=== PATIENT | male | born 1950 | race Caucasian/White ===

== ENCOUNTER → 2016-11-17 | Outpatient (CLI) | payer MEDICARE, OTHER ==
[~2016-11-17] MED LIST: ALLOPURINOL300 MG PO; ASPIRIN81 M1 PO; B12,B-12,B 12500 MC1 PO; B12100 MC1 PO; BUMETANIDE2 MG PO; CLARITIN10 MG PO; CLINDAMYCIN HC300 MG PO; COLCRYS0.6 MG PO; COUMADIN10 M1 PO; COUMADIN5 M2 PO; COUMADIN5 MG PO; Coumadin7.5 MG PO; FEOSOL45 MG PO; FEOSOL65 MG PO; FINASTERIDE5 MG PO; GABAPENTIN400 MG PO; GABAPENTIN600 MG PO; GLIPIZIDE2.5 MG PO; GLIPIZIDE5 MG PO; HYDROCODONE BIT1 T11 PO; INDOCIN25 MG PO; INDOCIN50 MG PO; KEFLEX500 MG PO; KLOR-CON M2020 ME1 PO; KLOR-CON M2020 MEQ PO; KLOR-CON20 MEQ PO; LASIX80 MG PO; LOPRESSOR50 MG PO; MEDROL DOSEPAK4 MG PO; METFORMIN500 MG PO; METOPROLOL50 MG PO; NEBULIZER; OMEPRAZOLE20 MG PO; OXYGEN NAS; PRILOSEC40 M1 PO; SPIRONOLACTONE25 MG PO; SYNTHROID,LEV175 MCG PO; TRAD5TAB1 PO; TRADJENTA PO; VICODIN ES 7501 TAB PO; XOPENEX0.63 MG NEB
--- NOTE | ~2016-11-17 | PR ---
[place], [place] PROGRESS NOTE NAME: JENN PHILLIPS UNIT #: [id number] ROOM: DOCTOR: KEILY CANO DPM BIRTHDATE: [birth year] DOS: 11/17/2016 SUBJECTIVE: The patient seen for bilateral lower extremity partial thickness venous ulcers. The patient had his dressing on, clean, dry and intact as directed. No new complaints. PHYSICAL EXAMINATION: It is noted that the left distal lower leg has a little area of scab formation that measures 0.1 x 0.1 x 0.1. This area was not debrided. Right lower extremity has two open ulcers, right lateral lower leg ulcers, 1 cm x 0.6 cm x 0.1 cm. Right midline anterior leg wound has an ulcer that measures 1.4 x 1.1 x 0.1. After local anesthetic, the areas were debrided with a 15 blade through subcutaneous to remove devitalized tissue and callus. The patient tolerated procedure well. Minimal bleeding controlled with pressure. IMPRESSION: Venous ulcers as described above, right stable and left almost closed. PLAN: 1. Evaluate. 2. Debridement as described. We will use VolTAC and pseudocompression wrap on the right lower leg and Adaptic and pseudocompression wrap on the left lower leg consisting of Kerlix and CoFlex. The patient is to keep this on clean, dry, and intact and reappoint in 1 week for followup. KEILY CANO DPM CM:PNTRANS 0831 [id number] KEILY CANO DPM 11/17/16 1004 interface
== END ==
LOC: WOUNDCARE 03:10
DX: I87.313 Chronic venous hypertension (idiopathic) with ulcer of bilateral lower extremity (principal); L97.821 Non-pressure chronic ulcer of other part of left lower leg limited to breakdown of skin; L97.811 Non-pressure chronic ulcer of other part of right lower leg limited to breakdown of skin; E10.622 Type 1 diabetes mellitus with other skin ulcer; L84 Corns and callosities

== ENCOUNTER → 2016-12-01 | Outpatient (CLI) | payer MEDICARE, OTHER ==
--- NOTE | ~2016-12-01 | PR ---
[place], [place] PROGRESS NOTE NAME: JENN PHILLIPS UNIT #: [id number] ROOM: DOCTOR: KEILY CANO DPM BIRTHDATE: [birth year] DOS: 12/01/2016 SUBJECTIVE: The patient seen for followup of venous ulcerations, bilateral lower extremity. He missed his appointment last week because he was sick. He then has taken off his bandage on his right lower leg. He has kept the bandage on the left lower leg. No new complaints. PHYSICAL EXAMINATION: Upon physical exam, it is noted that the right lower leg ulcerations have improved. The right lower leg lateral ulceration is 0.1 x 0.1 x 0.1 with a scab tissue area. Once this was debrided through dermis, it was noted that this wound is healed. Right lower leg midline ulcer is crusted over at 1.4 cm x 1.1 cm x 0.1 cm. This area was not debrided today. Left lower leg distal wound also has a scab area that is 0.1 x 0.1 x 0.1. Once this area was removed and debrided through dermis, there is no open wound and this has healed as well. IMPRESSION: Venous ulcers, bilateral legs, progressing well. PLAN: 1. Evaluate. 2. We will apply Adaptic to all the areas of ulceration, Kerlix, Coban and pseudocompression wrap. The patient is to keep this on clean, dry, and intact for 1 week and reappoint for follow up at the [facility] Center at that time. KEILY CANO DPM CM:PNTRANS [id number] KEILY CANO DPM 12/01/162228 interface
== END | disposition home or self-care (01) ==
LOC: WOUNDCARE 02:41
DX: E10.622 Type 1 diabetes mellitus with other skin ulcer (principal); L97.821 Non-pressure chronic ulcer of other part of left lower leg limited to breakdown of skin; L97.811 Non-pressure chronic ulcer of other part of right lower leg limited to breakdown of skin; I87.321 Chronic venous hypertension (idiopathic) with inflammation of right lower extremity

== ENCOUNTER → 2017-02-02 | Outpatient (CLI) | payer MEDICARE | END | disposition home or self-care (01) | LOC: MRI 02:50 | DX: E10.69 Type 1 diabetes mellitus with other specified complication (principal); I87.321 Chronic venous hypertension (idiopathic) with inflammation of right lower extremity; L97.902 Non-pressure chronic ulcer of unspecified part of unspecified lower leg with fat layer exposed; M54.5 Low back pain; M62.81 Muscle weakness (generalized); R20.2 Paresthesia of skin ==

== ENCOUNTER → 2017-02-09 | Outpatient (CLI) | payer MEDICARE ==
--- NOTE | ~2017-02-09 | PR ---
[place], [place] PROGRESS NOTE NAME: JENN PHILLIPS UNIT #: [id number] ROOM: DOCTOR: KEILY CANO DPM BIRTHDATE: [birth year] DOS: 02/09/2017 SUBJECTIVE: This is an established patient seen for right lower extremity partial thickness ulcerations. Last week, he was transitioned into his compression stockings. Today, he presents with no new complaints. He has been wearing his compression stockings. He does state that somewhat difficult to get on because of the edema, edema is more evident in the right lower extremity than the left. He does have an appointment with his primary care doctor next week and he is going to [place] in order to get an clinical physician assistant device to help him put his stockings on. PHYSICAL EXAMINATION: It is noted that there are no open ulcerations, all areas have healed. No evidence of any complications or other abnormalities other than the chronic edema. IMPRESSION: Healed venous wounds, bilateral. PLAN: 1. Evaluate. 2. The patient is to continue to wear his compression stockings and consult his primary care doctor as we have discussed. He will be discharged as healed from the wound center but he is encouraged to call if any problems should arise in the areas at this time. KEILY CANO DPM CM:SILVANA [id number] [id number] KEILY CANO DPM 02/10/17 1257 interface
== END ==
LOC: WOUNDCARE 03:09
DX: I87.321 Chronic venous hypertension (idiopathic) with inflammation of right lower extremity (principal); E10.622 Type 1 diabetes mellitus with other skin ulcer; L97.812 Non-pressure chronic ulcer of other part of right lower leg with fat layer exposed

== ENCOUNTER → 2017-02-16 | Outpatient (CLI) | payer MEDICARE ==
[~2017-02-16] MED LIST changes: +COUMADIN7.5 M1 PO; +FINASTERIDE5 M1 PO; +GABAPENTIN800 MG PO; +JANUVIA100 MG PO; +OMEPRAZOLE40 MG PO
== END | disposition home or self-care (01) ==
LOC: CARD 03:28
DX: I25.10 Atherosclerotic heart disease of native coronary artery without angina pectoris (principal); I10 Essential (primary) hypertension; I48.91 Unspecified atrial fibrillation; I35.1 Nonrheumatic aortic (valve) insufficiency; I34.0 Nonrheumatic mitral (valve) insufficiency; I07.1 Rheumatic tricuspid insufficiency; R60.0 Localized edema; R06.00 Dyspnea, unspecified

== ENCOUNTER 2017-02-17 10:51 | Inpatient (IN) | payer MEDICARE ==
[~2017-02-17] VITALS: Ht 180.3 cm; Wt 136.1 kg
--- NOTE | ~2017-02-17 | PR ---
[place], [place] PROGRESS NOTE NAME: JENN PHILLIPS UNIT #: [id number] ROOM: 526 DOCTOR: AMY ROGERS MD BIRTHDATE: [birth year] DOS: 02/22/2017 SUBJECTIVE: This gentleman has chronic atrial fibrillation and had heart surgery for "repair of a hole in the heart." He was seen by Dr. Ford few days ago. He is on loop diuretic intravenously and was 1.6 liters fluid negative in the last 24 hours. Previously, he was diuresing much less. He still has lot of swelling, which is chronic. There have not been any palpitations or any chest pain at this time. He has walked in the room only. OBJECTIVE: GENERAL: He looks well, very obese with a rather protuberant abdomen. VITAL SIGNS: Pulse is irregular at 80 beats per minute, blood pressure 125/73. NECK: JVP is normal. AJR appears to be negative, but he has 3+ edema below the knees. LUNGS: Breath sounds are diminished with very few adventitious sounds. IMPRESSION: 1. Chronic atrial fibrillation with controlled ventricular rate. 2. Probable diastolic heart failure due to atrial fibrillation. He is to have a Lexiscan Cardiolite study tomorrow. I saw this patient on behalf of Dr. Ford. AMY ROGERS MD CM:PNTRANS [id number] AMY ROGERS MD 02/23/17 0707 interface
--- NOTE | ~2017-02-17 | CON ---
[place], [place] REPORT OF CONSULTATION NAME: JENN PHILLIPS UNIT #: [id number] ROOM: 526 DOCTOR: SHELBY GROSS MD BIRTHDATE: [birth year] DOS: 02/18/2017 HISTORY OF PRESENT ILLNESS: The patient is a 66-year-old gentleman well known to me with a known history of bypass surgery, history of atrial fibrillation, on chronic anticoagulation. The patient has paroxysmal atrial fibrillation. The patient came in with significant shortness of breath and chest x-ray revealed congestive heart failure, did have an echocardiogram done showed an ejection fraction of 45%. He had not had a stress test for a long time. He denies any chest discomfort. Hemodynamically appears to be stable. His plain problem was, orthopnea, paroxysmal nocturnal dyspnea, does have a history of sleep apnea also. PAST MEDICAL HISTORY: History of chronic systolic heart failure, diabetes, hypertension, hyperlipidemia, history of DVT, history of pulmonary embolism, obstructive sleep apnea, history of atrial fibrillation. PAST SURGICAL HISTORY: Bypass surgery, repair of hiatal hernia, knee surgery, presence of IVC filter. SOCIAL HISTORY: Denies any alcohol or drug abuse. Does not use tobacco. FAMILY HISTORY: Coronary artery disease, diabetes and hypertension. HOME MEDICATIONS: Aspirin, furosemide 80 mg daily, gabapentin, iron, levothyroxine, loratadine, metoprolol, potassium, spironolactone, and Coumadin. REVIEW OF SYSTEMS: CONSTITUTIONAL: No fever, no chills. HEENT: Denies any visual changes. No hearing loss. CARDIOVASCULAR: As described in HPI. RESPIRATORY: Does have dyspnea on exertion. ABDOMEN: Soft. EXTREMITIES: No nausea, no vomiting. GENITOURINARY: No dysuria, hematuria. NEUROLOGIC: No syncope. PSYCHIATRIC: Intact. ENDOCRINE: Intact. PHYSICAL EXAMINATION: VITAL SIGNS: Blood pressure is 102/79. He is in atrial fibrillation, rate is about 90. HEENT: Elevated JVD. LUNGS: Diminished air entry bilaterally. HEART: Sounds are irregularly irregular. ABDOMEN: Obese, soft. EXTREMITIES: About 2+ edema. NEUROLOGICAL: Alert, oriented x3. Sensory and motor intact. LABORATORY DATA: Sodium 142, potassium 4.2, BUN and creatinine within normal limits. Creatinine is 1.1. CPK-MB is negative. Troponin is negative. BNP is [place], [place] REPORT OF CONSULTATION NAME: JENN PHILLIPS UNIT #: [id number] ROOM: 526 DOCTOR: SHELBY GROSS MD BIRTHDATE: [birth year] 7[birth year]. INR is 2.6. Hemoglobin and hematocrit 11.5 and 36.2. Chest x-ray showed mild congestive heart failure. IMPRESSION: Acute on chronic systolic congestive heart failure, morbid obesity, paroxysmal atrial fibrillation, history of pulmonary embolism, diabetes mellitus and hypertension. RECOMMENDATIONS: I agree with the present management. Continue IV diuretics, fluid restriction. Continue anticoagulation. Increase the metoprolol. Monitor the heart rate and blood pressure closely. We will set him up for a Lexiscan Cardiolite stress test also. Echo showed an EF of 45%, and we will follow up. SHELBY GROSS MD CM:CONSTR:REPORT OF CONSULTATION 0746 02/18/17 0805 interface
--- NOTE | ~2017-02-17 | ST ---
[place], [place] EXERCISE STRESS TEST REPORT NAME: JENN PHILLIPS UNIT #: [id number] ROOM: 526 DOCTOR: SHELBY GROSS MD BIRTHDATE: [birth year] DOS: 02/23/2017 LEXISCAN PORTION OF THE LEXISCAN CARDIOLITE INTERPRETATION: Baseline cardiogram is atrial fibrillation with mild ST depression with T-wave inversion in the anterior leads with nonspecific ST-T changes and also on the anterolateral leads. 0.4 mg of Lexiscan, duration of 10 seconds. The patient had no chest discomfort. No other dysrhythmia other than underlying atrial fibrillation. Blood pressure and heart rate response was normal. FINAL IMPRESSION: Indeterminate secondary to the underlying EKG abnormalities and atrial fibrillation. No chest discomfort. More pronounced ST depression with Lexiscan in the inferior and lateral leads. Blood pressure and heart rate normal. Nuclear images will be reported separately. SHELBY GROSS MD CM:STRESS:EXERCISE STRESS TEST REPORT 0710 1007 SHELBY GROSS MD
[~2017-02-17 10:51] MED LIST changes: -COUMADIN7.5 M1 PO; -FINASTERIDE5 M1 PO; -GABAPENTIN800 MG PO; -JANUVIA100 MG PO; -OMEPRAZOLE40 MG PO
[2017-02-17 11:00] VITALS: BP 105/65
[2017-02-17 11:22] LABS: BASO % 0.3 % (0.0-1.0); HEMATOCRIT 36.2 % (42.0-52.0); HEMOGLOBIN 11.5 g/dl (14.0-18.0); LYMPH # 1.2 10*3/uL (1.3-4.4); LYMPH % 30.6 % (27.0-41.0); MEAN CELL VOLUME 107.7 fl (80.0-94.0); MEAN CORPUSCULAR HGB 34.2 pg (27.0-31.0); MEAN CORPUSCULAR HGB CONC 31.8 g/dl (33.0-37.0); MEAN PLATELET VOLUME 10.2 fl (9.6-12.3); MONO # 0.4 10*3/uL (0.1-1.0); MONO % 9.5 % (3.0-9.0); NEUT # 2.3 10*3/uL (2.3-7.9); NEUT % 58.3 % (47.0-73.0); PLATELET COUNT AUTOMATED 101 10*3/uL (130-400); RED BLOOD COUNT 3.36 10*6/uL (4.50-5.90); RED CELL DISTRI WIDTH 15.9 % (0-14.5); WHITE BLOOD COUNT 3.9 10*3/uL (4.8-10.8)
[2017-02-17 11:31] LABS: INTERNATIONAL NORM RATIO 2.6 (2.0-3.5); PROTHROMBIN TIME 29.2 SECONDS (9.0-12.4)
[2017-02-17] MEDS ORDERED: LASIX80 MG PO (11:35)
[2017-02-17] MEDS ORDERED: METFORMIN500 MG PO (11:37)
[2017-02-17] MEDS ORDERED: GABAPENTIN800 MG PO (11:37)
[2017-02-17 11:38] LABS: ALBUMIN 2.8 gm/dl (3.1-4.5); ALKALINE PHOSPHATASE 74 U/L (45-117); BILIRUBIN, TOTAL 0.9 mg/dl (0.2-1.0); BUN 20 mg/dl (7-24); C-REACTIVE PROTEIN 0.81 MG/DL (0-0.3); CARBON DIOXIDE 29 mmol/L (21-32); CHLORIDE 107 mmol/L (98-107); CPK 69 U/L (39-308); EST GLOM FILT AFRICAN AMERICAN > 60 ml/min; GLUCOSE 188 mg/dL (65-99); MAGNESIUM 1.8 mg/dL (1.5-2.1); POTASSIUM 4.2 mmol/L (3.5-5.1); SGOT/AST 18 IU/L (3-35); SGPT/ALT 27 U/L (12-78); SODIUM 142 mmol/L (136-145); TOTAL PROTEIN 7.4 gm/dL (6.4-8.2)
[2017-02-17] MEDS ORDERED: KLOR-CON M2020 ME1 PO (11:38)
[2017-02-17] MEDS ORDERED: OMEPRAZOLE40 MG PO (11:38)
[2017-02-17] MEDS ORDERED: BUMETANIDE2 MG PO (11:38)
[2017-02-17 11:52] VITALS: BP 120/66
[2017-02-17 13:19] LABS: LA>2 REFLEX 2 HR DRAW NOW
[2017-02-17] MEDS ORDERED: FINASTERIDE5 M1 PO (13:20)
[2017-02-17 13:30] VITALS: BP 102/79
[2017-02-17] MEDS ORDERED: COUMADIN7.5 M1 PO (13:30)
[2017-02-17 13:37] LABS: LA>2 RFLX FOLLOW UP AT 2 HRS 2.3 mmol/L (0.4-2.0)
[2017-02-17] MEDS ORDERED: JANUVIA100 MG PO (13:37)
[2017-02-17 15:27] LABS: LA>2 REFLEX 4 HR DRAW NOW
[2017-02-17 16:00] VITALS: BP 104/72
[2017-02-17 18:16] LABS: CKMB 1.7 ng/ml (0.5-3.6); TROPONIN I 0.019 ng/ml (<0.045)
[2017-02-17 20:00] VITALS: BP 120/76; BP 143/58
[2017-02-18] VITALS: BP 113/52
[2017-02-18 00:52] LABS: CKMB 1.4 ng/ml (0.5-3.6); TROPONIN I 0.018 ng/ml (<0.045)
[2017-02-18 05:56] LABS: BASO % 0.5 % (0.0-1.0); EOS # 0.1 10*3/uL (0.0-0.4); EOS % 2.1 % (1.0-4.0); HEMATOCRIT 36.1 % (42.0-52.0); HEMOGLOBIN 11.4 g/dl (14.0-18.0); LYMPH # 1.3 10*3/uL (1.3-4.4); LYMPH % 34.2 % (27.0-41.0); MEAN CELL VOLUME 107.8 fl (80.0-94.0); MEAN CORPUSCULAR HGB CONC 31.6 g/dl (33.0-37.0); MEAN PLATELET VOLUME 11.6 fl (9.6-12.3); MONO # 0.4 10*3/uL (0.1-1.0); MONO % 10.7 % (3.0-9.0); NEUT # 1.9 10*3/uL (2.3-7.9); PLATELET COUNT AUTOMATED 99 10*3/uL (130-400); RED BLOOD COUNT 3.35 10*6/uL (4.50-5.90); RED CELL DISTRI WIDTH 16.1 % (0-14.5); WHITE BLOOD COUNT 3.7 10*3/uL (4.8-10.8)
[2017-02-18 06:10] LABS: CKMB 1.2 ng/ml (0.5-3.6); TROPONIN I 0.018 ng/ml (<0.045)
[2017-02-18 06:27] LABS: BUN 20 mg/dl (7-24); CARBON DIOXIDE 34 mmol/L (21-32); CHLORIDE 104 mmol/L (98-107); EST GLOM FILT AFRICAN AMERICAN > 60 ml/min; GLUCOSE 145 mg/dL (65-99); MAGNESIUM 1.8 mg/dL (1.5-2.1); PHOSPHOROUS 3.1 mg/dL (2.5-4.9); POTASSIUM 4.2 mmol/L (3.5-5.1); SODIUM 143 mmol/L (136-145)
[2017-02-18 06:35] LABS: FREE T4 1.29 ng/dl (0.76-1.46)
[2017-02-18 06:51] LABS: INTERNATIONAL NORM RATIO 2.4 (2.0-3.5)
[2017-02-18 08:18] VITALS: BP 106/71
[2017-02-18 14:00] VITALS: BP 119/78
[2017-02-18 15:21] LABS: LA>2 REFLEX 2 HR DRAW NOW
[2017-02-18 17:22] VITALS: BP 117/58
[2017-02-18 20:16] VITALS: BP 115/83
[2017-02-19] VITALS: BP 111/52
[2017-02-19 06:54] LABS: BASO % 0.5 % (0.0-1.0); EOS # 0.1 10*3/uL (0.0-0.4); EOS % 1.2 % (1.0-4.0); HEMATOCRIT 39.5 % (42.0-52.0); HEMOGLOBIN 12.3 g/dl (14.0-18.0); LYMPH # 1.2 10*3/uL (1.3-4.4); LYMPH % 29.3 % (27.0-41.0); MEAN CELL VOLUME 107.9 fl (80.0-94.0); MEAN CORPUSCULAR HGB 33.6 pg (27.0-31.0); MEAN CORPUSCULAR HGB CONC 31.1 g/dl (33.0-37.0); MEAN PLATELET VOLUME 10.5 fl (9.6-12.3); MONO # 0.5 10*3/uL (0.1-1.0); MONO % 11.8 % (3.0-9.0); NEUT # 2.4 10*3/uL (2.3-7.9); PLATELET COUNT AUTOMATED 96 10*3/uL (130-400); RED BLOOD COUNT 3.66 10*6/uL (4.50-5.90); RED CELL DISTRI WIDTH 15.9 % (0-14.5); WHITE BLOOD COUNT 4.2 10*3/uL (4.8-10.8)
[2017-02-19 07:26] LABS: INTERNATIONAL NORM RATIO 2.2 (2.0-3.5); PROTHROMBIN TIME 24.5 SECONDS (9.0-12.4)
[2017-02-19 08:00] VITALS: BP 108/72
[2017-02-19 12:00] VITALS: BP 109/72
[2017-02-19 16:00] VITALS: BP 114/66
[2017-02-19 20:00] VITALS: BP 125/84; BP 145/61
[2017-02-20] VITALS: BP 100/60
[2017-02-20 07:02] LABS: BASO % 0.6 % (0.0-1.0); EOS # 0.1 10*3/uL (0.0-0.4); EOS % 2.1 % (1.0-4.0); HEMATOCRIT 36.2 % (42.0-52.0); HEMOGLOBIN 11.5 g/dl (14.0-18.0); LYMPH # 1.1 10*3/uL (1.3-4.4); LYMPH % 32.2 % (27.0-41.0); MEAN CELL VOLUME 107.1 fl (80.0-94.0); MEAN CORPUSCULAR HGB CONC 31.8 g/dl (33.0-37.0); MEAN PLATELET VOLUME 10.7 fl (9.6-12.3); MONO # 0.4 10*3/uL (0.1-1.0); MONO % 11.8 % (3.0-9.0); NEUT # 1.8 10*3/uL (2.3-7.9); NEUT % 53.3 % (47.0-73.0); PLATELET COUNT AUTOMATED 98 10*3/uL (130-400); RED BLOOD COUNT 3.38 10*6/uL (4.50-5.90); RED CELL DISTRI WIDTH 15.7 % (0-14.5); WHITE BLOOD COUNT 3.4 10*3/uL (4.8-10.8)
[2017-02-20 07:27] LABS: BUN 26 mg/dl (7-24); CARBON DIOXIDE 34 mmol/L (21-32); CHLORIDE 101 mmol/L (98-107); EST GLOM FILT AFRICAN AMERICAN > 60 ml/min; GLUCOSE 145 mg/dL (65-99); SODIUM 141 mmol/L (136-145)
[2017-02-20 08:00] VITALS: BP 96/72
[2017-02-20 08:08] LABS: INTERNATIONAL NORM RATIO 2.2 (2.0-3.5); PROTHROMBIN TIME 24.2 SECONDS (9.0-12.4)
[2017-02-20 12:00] VITALS: BP 102/70
[2017-02-20 16:00] VITALS: BP 91/66
[2017-02-20 20:00] VITALS: BP 111/74
[2017-02-21] VITALS: BP 127/82
[2017-02-21 06:08] LABS: BASO % 0.5 % (0.0-1.0); EOS # 0.1 10*3/uL (0.0-0.4); EOS % 1.9 % (1.0-4.0); HEMATOCRIT 37.6 % (42.0-52.0); HEMOGLOBIN 11.9 g/dl (14.0-18.0); LYMPH # 1.2 10*3/uL (1.3-4.4); MEAN CORPUSCULAR HGB 34.2 pg (27.0-31.0); MEAN CORPUSCULAR HGB CONC 31.6 g/dl (33.0-37.0); MEAN PLATELET VOLUME 10.8 fl (9.6-12.3); MONO # 0.4 10*3/uL (0.1-1.0); MONO % 11.7 % (3.0-9.0); NEUT % 53.6 % (47.0-73.0); PLATELET COUNT AUTOMATED 108 10*3/uL (130-400); RED BLOOD COUNT 3.48 10*6/uL (4.50-5.90); RED CELL DISTRI WIDTH 15.6 % (0-14.5); WHITE BLOOD COUNT 3.7 10*3/uL (4.8-10.8)
[2017-02-21 06:21] LABS: CHLORIDE 99 mmol/L (98-107); POTASSIUM 4.1 mmol/L (3.5-5.1); SODIUM 140 mmol/L (136-145)
[2017-02-21 06:25] LABS: BUN 26 mg/dl (7-24); CARBON DIOXIDE 34 mmol/L (21-32); EST GLOM FILT AFRICAN AMERICAN > 60 ml/min; GLUCOSE 167 mg/dL (65-99)
[2017-02-21 07:27] LABS: PROTHROMBIN TIME 22.1 SECONDS (9.0-12.4)
[2017-02-21 08:00] VITALS: BP 111/77
[2017-02-21 12:00] VITALS: BP 115/73
[2017-02-21 16:00] VITALS: BP 110/70; BP 95/64
[2017-02-21 20:00] VITALS: BP 131/86
[2017-02-22] VITALS: BP 111/65
[2017-02-22 06:06] LABS: BUN 26 mg/dl (7-24); CARBON DIOXIDE 38 mmol/L (21-32); CHLORIDE 98 mmol/L (98-107); EST GLOM FILT AFRICAN AMERICAN > 60 ml/min; GLUCOSE 156 mg/dL (65-99); POTASSIUM 4.2 mmol/L (3.5-5.1); SODIUM 139 mmol/L (136-145)
[2017-02-22 06:10] LABS: INTERNATIONAL NORM RATIO 2.1 (2.0-3.5); PROTHROMBIN TIME 23.4 SECONDS (9.0-12.4)
[2017-02-22 08:00] VITALS: BP 117/63
[2017-02-22 12:00] VITALS: BP 106/45
[2017-02-22 16:00] VITALS: BP 125/73
[2017-02-22 20:00] VITALS: BP 128/80
[2017-02-23] VITALS: BP 102/74
[2017-02-23 06:34] LABS: INTERNATIONAL NORM RATIO 2.3 (2.0-3.5); PROTHROMBIN TIME 25.2 SECONDS (9.0-12.4)
[2017-02-23 08:00] VITALS: BP 125/74
[2017-02-23 09:34] LABS: BASO % 0.6 % (0.0-1.0); EOS # 0.1 10*3/uL (0.0-0.4); EOS % 1.7 % (1.0-4.0); HEMATOCRIT 40.1 % (42.0-52.0); HEMOGLOBIN 12.6 g/dl (14.0-18.0); LYMPH # 1.1 10*3/uL (1.3-4.4); LYMPH % 30.7 % (27.0-41.0); MEAN CELL VOLUME 106.4 fl (80.0-94.0); MEAN CORPUSCULAR HGB 33.4 pg (27.0-31.0); MEAN CORPUSCULAR HGB CONC 31.4 g/dl (33.0-37.0); MEAN PLATELET VOLUME 10.6 fl (9.6-12.3); MONO # 0.3 10*3/uL (0.1-1.0); MONO % 9.5 % (3.0-9.0); NEUT # 2.1 10*3/uL (2.3-7.9); NEUT % 57.2 % (47.0-73.0); PLATELET COUNT AUTOMATED 99 10*3/uL (130-400); RED BLOOD COUNT 3.77 10*6/uL (4.50-5.90); RED CELL DISTRI WIDTH 15.3 % (0-14.5); WHITE BLOOD COUNT 3.6 10*3/uL (4.8-10.8)
[2017-02-23 09:50] LABS: BUN 24 mg/dl (7-24); CARBON DIOXIDE 36 mmol/L (21-32); CHLORIDE 97 mmol/L (98-107); EST GLOM FILT AFRICAN AMERICAN > 60 ml/min; GLUCOSE 191 mg/dL (65-99); POTASSIUM 4.1 mmol/L (3.5-5.1); SODIUM 138 mmol/L (136-145)
[2017-02-23 12:00] VITALS: BP 113/72
[2017-02-23 16:00] VITALS: BP 107/69
[2017-02-23] MEDS ORDERED: BUMETANIDE2 MG PO (17:08)
[2017-02-23] MEDS ORDERED: LOPRESSOR25 MG PO (17:10)
== END 2017-02-23 18:36 | disposition home health service (06) | DRG 291 ==
LOC: ED 10:51 → 5E 12:09 → EDHOLD 12:09 → 5E 12:22
PROVIDERS: Emergency Medicine; Hospitalist; Internal Medicine; Internal Medicine Hospice and Palliative Medicine
PROC: 3E073KZ Introduction of Other Diagnostic Substance into Coronary Artery, Percutaneous Approach (ICD-10-PCS; principal; 2017-02-23)
PROC: 4A02XM4 Measurement of Cardiac Total Activity, External Approach (ICD-10-PCS; principal; 2017-02-23)
DX: I13.0 Hypertensive heart and chronic kidney disease with heart failure and stage 1 through stage 4 chronic kidney disease, or unspecified chronic kidney disease (principal); I50.23 Acute on chronic systolic (congestive) heart failure; D61.818 Other pancytopenia; E87.2 Acidosis; E44.0 Moderate protein-calorie malnutrition; R65.10 Systemic inflammatory response syndrome (SIRS) of non-infectious origin without acute organ dysfunction; E11.42 Type 2 diabetes mellitus with diabetic polyneuropathy; E11.65 Type 2 diabetes mellitus with hyperglycemia; Z68.41 Body mass index [BMI] 40.0-44.9, adult; I48.0 Paroxysmal atrial fibrillation; I48.2 Chronic atrial fibrillation; E78.5 Hyperlipidemia, unspecified; N40.0 Benign prostatic hyperplasia without lower urinary tract symptoms; E66.01 Morbid (severe) obesity due to excess calories; G47.33 Obstructive sleep apnea (adult) (pediatric); Z86.718 Personal history of other venous thrombosis and embolism; Z86.711 Personal history of pulmonary embolism; Z83.3 Family history of diabetes mellitus; Z82.49 Family history of ischemic heart disease and other diseases of the circulatory system; Z84.89 Family history of other specified conditions; Z79.82 Long term (current) use of aspirin; Z79.84 Long term (current) use of oral hypoglycemic drugs; Z79.01 Long term (current) use of anticoagulants; Z79.1 Long term (current) use of non-steroidal anti-inflammatories (NSAID); Z79.899 Other long term (current) drug therapy; N18.3 Chronic kidney disease, stage 3 (moderate)

== ENCOUNTER → 2017-03-03 | Outpatient (CLI) | payer MEDICARE ==
[~2017-03-03] MED LIST changes: +COUMADIN7.5 M1 PO; +FINASTERIDE5 M1 PO; +GABAPENTIN800 MG PO; +JANUVIA100 MG PO; +LOPRESSOR25 MG PO; +OMEPRAZOLE40 MG PO
[2017-03-03 10:07] LABS: HEMATOCRIT 38.8 % (42.0-52.0); HEMOGLOBIN 12.2 g/dl (14.0-18.0); MEAN CELL VOLUME 107.5 fl (80.0-94.0); MEAN CORPUSCULAR HGB 33.8 pg (27.0-31.0); MEAN CORPUSCULAR HGB CONC 31.4 g/dl (33.0-37.0); MEAN PLATELET VOLUME 9.9 fl (9.6-12.3); RED BLOOD COUNT 3.61 10*6/uL (4.50-5.90); RED CELL DISTRI WIDTH 15.4 % (0-14.5); WHITE BLOOD COUNT 3.8 10*3/uL (4.8-10.8)
[2017-03-03 10:31] LABS: BUN 20 mg/dl (7-24); CARBON DIOXIDE 34 mmol/L (21-32); CHLORIDE 103 mmol/L (98-107); EST GLOM FILT AFRICAN AMERICAN > 60 ml/min; GLUCOSE 158 mg/dL (65-99); POTASSIUM 4.5 mmol/L (3.5-5.1); SGOT/AST 20 IU/L (3-35); SGPT/ALT 29 U/L (12-78); SODIUM 141 mmol/L (136-145)
[2017-03-03 10:32] LABS: INTERNATIONAL NORM RATIO 2.1 (2.0-3.5); PROTHROMBIN TIME 23.2 SECONDS (9.0-12.4)
[2017-03-03 10:33] LABS: ALKALINE PHOSPHATASE 85 U/L (45-117); TOTAL PROTEIN 7.7 gm/dL (6.4-8.2)
== END | disposition home or self-care (01) ==
LOC: LAB 09:29
PROVIDERS: Family Medicine
DX: I50.9 Heart failure, unspecified (principal); R06.02 Shortness of breath; Z79.01 Long term (current) use of anticoagulants

== ENCOUNTER → 2017-03-18 | Outpatient (CLI) | payer MEDICARE ==
[2017-03-18 09:39] LABS: INTERNATIONAL NORM RATIO 2.5 (2.0-3.5); PROTHROMBIN TIME 28.1 SECONDS (9.0-12.4)
== END | disposition home or self-care (01) ==
LOC: LAB 08:45
PROVIDERS: Family Medicine
DX: Z79.01 Long term (current) use of anticoagulants (principal)

== ENCOUNTER 2017-03-31 13:54 | Inpatient (IN) | payer MEDICARE ==
[~2017-03-31] VITALS: Ht 180.3 cm; Wt 132.2 kg
[2017-03-31] VITALS (9 sets, daily range): BP systolic 110–128; BP diastolic 67–89
--- NOTE | ~2017-03-31 | EKG ---
[place], [place] ELECTROCARDIOGRAM REPORT NAME: JENN PHILLIPS UNIT #: [id number] ROOM: 508 DOCTOR: SHELBY GROSS MD BIRTHDATE: [birth year] DOS: 04/01/2017 Atrial fibrillation, slightly rapid ventricular response, ST-depressions and T-wave inversion in the anterior and anterolateral leads. SHELBY GROSS MD CM:EKGRPT:ELECTROCARDIOGRAM REPORT 1138 1823 SHELBY GROSS MD
--- NOTE | ~2017-03-31 | PR ---
[place], [place] PROGRESS NOTE NAME: JENN PHILLIPS UNIT #: [id number] ROOM: [place] [address] DOCTOR: ZAIDA HAY MD,SAMM BIRTHDATE: [birth year] DOS: 04/11/2017 PULMONARY CRITICAL CARE EVALUATION AND MANAGEMENT SUBJECTIVE: The patient was seen and examined on 04/11/2017. He remains in the Intensive Care Unit sedated with low dose Diprivan, noted arousable with the vocal commands for the patient. The patient has not been noted with any acute new hemodynamic instability at this time. He will continue diuretic therapy as well. Mechanical ventilation continued on the same setting yesterday with 40% oxygen supplementation. The patient continued to remain on pressure controlled assist control mode of mechanical ventilation use. OBJECTIVE: VITAL SIGNS: For the patient, which was recorded show the temperature noted 100.7 degree Fahrenheit rectally to normal temperature, respiratory rate 12-16, heart rate 78-84. The blood pressure 111/63-104/62. The intake for the patient recorded as 2994 mL, output 5151 mL, negative 2. liters. The pulse oxygen saturation on 40% oxygen was noted as 94% saturation. HEENT: Examination shows head was atraumatic. Eyes nonicterus. NECK: Supple. CARDIOVASCULAR SYSTEM: S1, S2 is audible. LUNGS: The patient was noted without any wheeze or crackles at the present time. ABDOMEN: Soft and obese. Bowel sounds present. EXTREMITIES: Shows mild edema. LABORATORY DATA: The INR today noted 1.4. PTT noted therapy for this patient as 85.2. The CMP of the patient of 04/11 shows glucose 213, BUN 57, creatinine 1.81. Potassium was 3.1. Carbon dioxide 40. Chloride of 91. Albumin 2.9. Bilirubin 2.0. Arterial blood gas, pH of 7.55, pCO2 of 46, pO2 102 on 40% oxygen supplementation. CBC: WBC count 5.7, hemoglobin 11.3, hematocrit 36.4, platelet count 113,000. The chest x-ray which was done this morning for the patient was reviewed shows continued improvement in the aeration of the lungs for the patient with small basilar areas of atelectasis. IMPRESSION: 1. The patient who has been currently noted with acute persistent severe hypoxic respiratory failure for this patient. 2. Resolving acute congestive heart failure as well. 3. Improving metabolic alkalosis for the patient and hypokalemia. 4. Chronic obesity. 5. Suspected obstructive sleep apnea disorder. 6. Chronic anticoagulation noted subtherapeutic. Currently, the patient receiving IV therapeutic heparin for the patient with therapeutic PTT and also getting the patient to maintain to bring the INR to therapeutic level prior to discontinuation of the heparin. 7. Chronic atrial fibrillation. The patient has been already treated as well and noted in controlled range. 8. Protein calorie malnutrition status. [place], [place] PROGRESS NOTE NAME: JENN PHILLIPS UNIT #: [id number] ROOM: [place] [address] DOCTOR: ZAIDA HAY MD,SAMM BIRTHDATE: [birth year] PLAN OF TREATMENT: Continuation of the bronchodilators and oxygen supplementation. Continue use of Diamox and potassium supplementation. Monitor respiratory status. Plan is to switch the patient tomorrow to volume controlled mechanical ventilation for the patient with reduction in the PEEP for this patient and the weaning will be started accordingly. Continue maximum nutritional status. Supportive therapy, plan of management and other care. DVT prophylaxis in the form of the anticoagulation will be continued as well. Further treatment changes could be done for this patient based on the progression of the illness. Other treatment plan and management as in progress as well. Ventilator bundle management remains in progress. Obtain another prealbumin level of the patient to determine the improvement in the protein calorie malnutrition. Total time for the patient pulmonary critical care evaluation and management was 36 minutes. SAMM CERDA MD CM:PNTRANS 1336 0028 SAMM HAY MD 04/12/17 0028 interface
--- NOTE | ~2017-03-31 | EKG ---
[place], [place] ELECTROCARDIOGRAM REPORT NAME: JENN PHILLIPS UNIT #: [id number] ROOM: [place] [address] DOCTOR: SHELBY GROSS MD BIRTHDATE: [birth year] DOS: 03/31/2017 Atrial fibrillation. Slightly rapid ventricular response. ST depressions present in anterior and anterolateral leads. Suggestion of anterolateral ischemia. SHELBY GROSS MD CM:EKGRPT:ELECTROCARDIOGRAM REPORT 1142 1212 SHELBY GROSS MD
--- NOTE | ~2017-03-31 | PR ---
[place], [place] PROGRESS NOTE NAME: JENN PHILLIPS UNIT #: [id number] ROOM: [place] [address] DOCTOR: ZAIDA HAY MD,SAMM BIRTHDATE: [birth year] DOS: 04/12/2017 SUBJECTIVE: The patient remains on the pressure controlled mechanical ventilation, at this time oxygen supplementation 40%, which seem to be tolerated. He has not been noted any acute hemodynamic instability, heart rate was also noted less than 100. OBJECTIVE: VITAL SIGNS: The patient was noted the rectal temperature elevated at 102.5 degrees Fahrenheit to normal temperature, respiratory rate 12-13, heart rate 73, and blood pressure 121/64-103/66. Intake for the patient recorded at 2800 mL and output 400 mL, negative fluid balance of 1.566 liters. The pulse oxygen saturation on 40% oxygen 94% saturation recorded. HEENT: Chronic obesity. NECK: Supple. CARDIOVASCULAR SYSTEM: S1, S2 audible. LUNGS: The patient was noted without any wheeze or crackles at the present time. Breaths are noted mildly decreased bilaterally. ABDOMEN: Soft, obese, nontender. EXTREMITIES: Show no edema. LABORATORY DATA: CBC today: WBC count 5.2, hemoglobin 11.4, hematocrit 35.3, platelet count 121,000. The PT/INR was noted 1.5. PTT 116. CMP this morning, BUN 75, creatinine 2.29, glucose 289, carbon dioxide 42, chloride of 87. Total bilirubin 1.6. Arterial blood gas pH of 7.56, pCO2 of 43, pO2 of 103. The chest x-ray of the patient that was done this morning for the patient showed endotracheal tube were noted in appropriate position with small area of atelectasis of pleural fluid the patient was noted in the left lung. The NG tube was noted in the stomach, endotracheal tube was noted in appropriate position. IMPRESSION: 1. The patient with persistent acute severe hypoxic respiratory failure requiring high amount of PEEP for patient on pressure controlled mechanical ventilation. 2. Acute bacterial pneumonia with a small pleural fluid on the left side as well. 3. The patient with fever. The patient was still noted all the culture of the bronchial washing patient so far showed no bacterial growth for this patient. The WBC count essentially remains normal. PLAN OF TREATMENT: The patient was switched to volume control mechanical ventilation, assist control mode. The patient PEEP was started at 8 cm of water pressure increased 12 cm of water pressure. The oxygen saturation that was recorded about 92% which will be monitored. Arterial blood gas will be obtained couple of hours later on for this patient. If the patient developed hypoxia with current setting the patient may be need to switched back to pressure controlled mechanical ventilator at the same settings of pressure of 30, PEEP of 14. In the meantime, continue the patient other supportive therapy, plan of management. Obtain endotracheal aspirate for Gram stain and culture. Look for [place], [place] PROGRESS NOTE NAME: JENN PHILLIPS UNIT #: [id number] ROOM: [place] [address] DOCTOR: ZAIDA HAY MD,SAMM BIRTHDATE: [birth year] any other source of infection for the patient if present. Plan of management, usual treatment. Supportive care. Further treatment changes will be done based on the progression of the illness. Also, obtain 2 more sets of blood culture for the patient briefly as well. Anticoagulation currently adjusted with adjustment of the dose of heparin the patient until the INR noted therapeutic today was noted 1.5. Continue nutrition support. Ventilator bundle management. Assessment and management were discussed with the patient and in detail at the bedside. Total time of pulmonary and critical care evaluation and management was 38 minutes. SAMM CERDA MD CM:PNTRANS 1334 02 SAMM HAY MD 04/12/17 9902 interface
--- NOTE | ~2017-03-31 | PROC NOTE ---
[place], [place] PROCEDURE NOTE NAME: JENN PHILLIPS UNIT #: [id number] ROOM: [place] [address] DOCTOR: HARISH WAYNE CRNA BIRTHDATE: [birth year] DOS: 04/03/2017 INTUBATION NOTE Told to intubate patient per Dr. Johnson. The patient on BiPAP with a sat in the 86-88, patient is somewhat obtunded. Blood gas, pH 7.2, pCO2 90, pO2 211, bicarbonate of 34.5 with potassium of 6.1. The patient sedated with propofol 50 mg, intubated under direct visualization with a 2 Reyna blade, intubated without difficulty. Positive bilateral breath sounds, positive end-tidal CO2. Tube secured at 23 cm at the ___. The patient tolerated the procedure well. HARISH WAYNE CRNA CM:PROCNOTE:PROCEDURE NOTE 0824 [id number] HARISH WAYNE CRNA
--- NOTE | ~2017-03-31 | CON ---
[place], [place] REPORT OF CONSULTATION NAME: JENN PHILLIPS UNIT #: [id number] ROOM: [place] [address] DOCTOR: JOSHUA CARMONA M.D. BIRTHDATE: [birth year] DOS: 04/02/2017 CHIEF COMPLAINT: Shortness of breath. HISTORY OF PRESENT ILLNESS: This is a 66-year-old male with multiple medical problems who was admitted through the Emergency Room Department yesterday for complaints of shortness of breath and increasing leg edema. Wound care has been consulted for ulcerations of his bilateral lower extremities. He is the patient that is well known to the [facility]ound [facility]. He is a longstanding patient of Dr. Xie for venous stasis ulcerations that have taken quite a long time to heal in the past. His wounds did heal; however, back at the end of January and he was discharged from the Wound Clinic and according to the patient, they stayed healed pretty much up until approximately 5-6 weeks ago where they opened up and will get some occasional drainage. There is no pain associated with the wounds. He has wounds on both of the lower extremities. He has been using bacitracin [id number] as what the patient says for these wounds. There is no associated pain, fevers or chills. There is a blistered area. He noted on the left lower extremity that just recently started. Apparently, he stopped taking his Bumex due to financial reasons and changed to Lasix; however, he noted increasing leg edema, increasing shortness of breath. He has had a recent admission about a month ago for congestive heart failure as well and had a recent stress test that was done, which showed no reversible ischemia and his EF was 45% to 50%. He is also supposed to wear a CPAP at night, but he does not want, he has not used it. PAST MEDICAL HISTORY: He has a history of BPH, chronic atrial fibrillation, chronic congestive heart failure, diabetic neuropathy, diabetic ulcer of the lower extremity, history of diabetes, hypertension, history of DVT, history of pulmonary embolus, moderate protein calorie malnutrition, obstructive sleep apnea, history of pancytopenia. He is status post open heart surgery, repair of hiatal hernia, knee surgery, IVC filter. I know he did have a history of venous ulcers, which did take quite a long time to heal. Also, he actually did end up undergoing operative debridement and placement of graft substitute in the past as well. SOCIAL HISTORY: He does not smoke or drink. FAMILY HISTORY: Significant for coronary artery disease, diabetes, and peripheral vascular disease. ALLERGIES: No known drug allergies. MEDICATIONS: That have been ordered are as follows: He is on Coumadin 7.5 mg Wednesday, Wednesday, Wednesday and increased that to 11.25 on Wednesday. He is on Aldactone 25 mg p.o. daily, Claritin 10 mg p.o. daily, Proscar 5 mg p.o. daily, aspirin 81 daily, Zyloprim 300 p.o. daily, Prilosec 40 p.o. daily, levothyroxine 175 mcg p.o. daily, Bumex 1 mg IV q. 12 hours, Lopressor 75 p.o. b.i.d., Humalog sliding scale, Neurontin 1200 mg p.o. q. 8 hours, Flonase 0.05% nasal spray every 12 hours. He has albumin infusion written for q. 12 hours, nasal saline spray, Restoril 15 at bedtime p.r.n., Zofran 4 mg IV q. 6 hours p.r.n., milk of [place], [place] REPORT OF CONSULTATION NAME: JENN PHILLIPS UNIT #: [id number] ROOM: [place] [address] DOCTOR: JOSHUA CARMOAN M.D. BIRTHDATE: [birth year] mag 30 mL p.o. daily, Dulcolax, Wilmore, and Tylenol p.r.n. REVIEW OF SYSTEMS: He does complain of shortness of breath and orthopnea. Apparently he has gotten worse for the past 2-3 weeks, increasing leg edema, a blister on his left leg, no documented fevers, but does state he has cold chills at times. His sugars are "good." He recalls a vague episode of chest discomfort yesterday that did not last long according to the patient and it was quite brief. No nausea, vomiting or diarrhea. He has had some loss of appetite, but no documented weight loss. He says since yesterday he has not really noticed urinating a great deal. He said he has some difficulty with his urinary stream. No polydipsia or polyuria as noted. PHYSICAL EXAMINATION: VITAL SIGNS: He is afebrile, temperature is 98.7, pulse of 90, respirations are 20, blood pressure is 104/72, pulse ox is 92% on 2 liters. GENERAL: This is an elderly male who appears much older than his stated age, quite pale on examination, is somewhat obese. Oropharynx is clear. EENT: Extraocular movements are intact. Sclerae are anicteric. NECK: I do not appreciate any JVD. LUNGS: Have decreased breath sounds in the bases. CARDIOVASCULAR: S1, S2, irregularly irregular. ABDOMEN: Morbidly obese, soft and nontender. EXTREMITIES: Has approximately 2+ pitting edema bilaterally. It is difficult to feel his pulses secondary to the chronic edema. He has evidence of venous stasis changes, chronic hemosiderin staining on both of his lower extremities. His right lower extremity seems slightly more swollen than the left. His toes are slightly cool and he has good capillary refill. He has essentially a wound that is on the right lower extremity anterior leg that is measuring approximately 2 cm x 1.5 cm x 0.1. There is really no depth to it at this time, the pictures that were taken yesterday shows an area of what appears to be dried adherent slough. Today the area has obvious necrotic tissue present and it seems a lot softer and there is slight odor noted to the wound and that is on the right lower extremity. The left lower extremity has a very, very small open ulcer that is measuring approximately 0.8 cm in length x 0.5 in width x 0.1 in depth and there is some fibrin slough on the pictures, but it does actually look pretty clean today in comparison to yesterday. There is a small intact blister as well that is approximately 1 x 1 cm with clear serous fluid. Due to the necrotic tissue present, especially on the right lower extremity and the odor, a debridement was recommended. He has had several debridements done in the Wound Clinic and is quite ease to having them done and he has never had any complications with debridement. The area was cleansed and prepped and Cetacaine spray was used for topical anesthesia. A timeout was conducted prior to the start of the procedure. A curette was utilized to remove nonviable tissue only after that was removed on the right lower extremity wound. The open ulceration was definitely still present that I would measure at 0.8 cm x 0.3 cm in width, but it is still open, there is 0.1 in depth, but there is some epithelial tissue underneath that as well once it was unroofed. A swab culture was taken post-debridement of the area after was unroofed. There is really no active cellulitis or purulence noted. The blistered area was drained of clear serous fluid, but it was not unroofed in the blister. The overlying epidermis is left. [place], [place] REPORT OF CONSULTATION NAME: JENN PHILLIPS UNIT #: [id number] ROOM: [place] [address] DOCTOR: JOSHUA CARMONA M.D. BIRTHDATE: [birth year] No debridement was done on the left lower extremity. So 100% of the wound was debrided on the right lower extremity. No bleeding occurred. The patient tolerated the debridement well. LABORATORY DATA: Show a white count of 4.8, hemoglobin of 11.5, hematocrit is 37.2. He has got an increased MCV and MCH, platelets are low at 96,000. His INR is 2.1. Potassium is elevated at 5.3, BUN is 29, creatinine 1.3, glucose is 162. Hemoglobin A1c is definitely well controlled at 6.4. He had a lower extremity venous Doppler done today, which showed no evidence of DVT within the lower extremities bilaterally. Chest x-ray shows cardiomegaly without active pulmonary process. He had an albumin of 2.9 as well. ASSESSMENT AND PLAN: Chronic venous ulceration of the bilateral lower extremities, complicated by exacerbation of congestive heart failure and worsening leg edema. A culture was obtained today due to the fact that there was an odor present when I examined the wound; however, once the area was debrided and cleansed, the odor seemed to have dissipated. I would use a silver dressing for now for bioburden control and to absorb any drainage as well as Versatel to help prevent trauma to the wounds with dressing changes. I would use that on all the leg ulcers for now and Tubigrip for edema control. Apparently, he has not tolerated compression in the past and especially refuses to wear anything around his feet. He does have compression stockings at home, but has difficulty getting them on. He will likely need continued wound care and he will follow up with Dr. Xie once he is stable. I have also taken the liberty to order an arterial Doppler as I do not see one recently ordered here. This could be done tomorrow. His last ERIC was 1.38 on the left and 1.22 on the right. He has other multiple medical problems that are being managed by his medical team that include congestive heart failure, chronic atrial fibrillation, hypertension, diabetes, history of DVT, pulmonary embolus, on chronic Coumadin therapy. JOSHUA CARMONA MD CM:CONSTR:REPORT OF CONSULTATION 1430 04/03/17 0613 interface
--- NOTE | ~2017-03-31 | CON ---
[place], [place] REPORT OF CONSULTATION NAME: JENN PHILLIPS UNIT #: [id number] ROOM: [place] [address] DOCTOR: SAMM ROSS MD BIRTHDATE: [birth year] DOS: 04/03/2017 PULMONARY CONSULTATION EVALUATION AND MANAGEMENT REASON FOR CONSULTATION: To assess the patient for current acute respiratory failure. HISTORY OF PRESENT ILLNESS: This is a 66-year-old white male who has been admitted in this hospital on 03/31/2017, under the hospitalist services. The patient had been managed on the telemetry floor under care of the hospitalist services. He had been admitted to the hospital. The patient developed symptoms of increased shortness of breath. He has been previously treated and managed for the congestive heart failure as well. The patient was noted progressive edema of the lower extremity, noted with congestive heart failure. He has been managing the floor. The patient developed severe respiratory distress for the patient since last night, early in the morning. He was then transferred to the Intensive Care Unit where he has been noted with severe acute hypercapnic and hypoxemic respiratory failure, requiring intubation on mechanical ventilation. The patient has been intubated and started on mechanical ventilation after my consultation upon my advice. Currently, the patient has been sedated and remains on mechanical ventilator. He has been noted with some cough for this patient. There were no symptoms of wheezing described. The patient has not been noted with any copious amount of frothy secretions from the endotracheal tube or any findings of hemoptysis with endotracheal aspirate. The review of systems could not be completed for this patient and the other history was also obtained for the patient from current review of the medical records for the patient and also obtained from the patient's . PAST MEDICAL HISTORY: 1. Known history of chronic atrial fibrillation. 2. History of congestive heart failure, cardiomyopathy. The patient's ejection fraction 40-45%. 3. History of obstructive sleep apnea disorder, noncompliant with the treatment. 4. Diabetic nephropathy. 5. Diabetic foot ulcer for this patient. 6. Chronic venous stasis pigmentation lower extremity. 7. Essential hypertension. 8. Past history of deep venous thrombosis and pulmonary embolism. 9. History of protein-calorie malnutrition. 10. History of pancytopenia as well. 11. Coronary artery disease. PAST SURGICAL HISTORY: Was noted, 1. IVC filter placement. 2. Coronary artery bypass grafting. 3. Hiatal hernia surgery. 4. Surgery of the knee. SOCIAL HISTORY: The patient is , noted nonsmoker lifetime as per spouse. [place], [place] REPORT OF CONSULTATION NAME: JENN PHILLIPS UNIT #: [id number] ROOM: [place] [address] DOCTOR: JOHNSON ROSS MDM BIRTHDATE: [birth year] The patient does not have any children. There is no history of occupation related pulmonary exposure known. FAMILY HISTORY: Noted significant for coronary artery disease, diabetes and peripheral vascular disease. MEDICATIONS: Current administered medications noted as use of Coumadin, Bumex, Mucinex liquid, IV propofol, Coumadin, allopurinol, aspirin, levothyroxine, metoprolol tartrate, Flonase. The patient was also given the albumin for the patient 1 dose for the patient as well as IV Bumex total of 2 mg. DRUG ALLERGY: Noted no known drug allergies. PHYSICAL EXAMINATION: GENERAL: A 66-year-old male who has been currently intubated on the mechanical ventilator, height of 5 feet 11 inches, weight of 316 pounds. VITAL SIGNS: For the patient which has been recorded showed the temperature of the patient recorded as normal, respiratory rate 17-22, heart rate of 129-72 for the patient atrial fibrillation with rapid ventricular response, blood pressure 104/72 to patient 102/60 in the last 24 hours. The intake for the patient 1600 mL, output 850 mL recorded. Pulse oxygen saturation on 40% oxygen supplementation 98% saturation. HEENT: Head was atraumatic. Eyes: No icterus. NECK: Supple. He was obese. The patient has orogastric tube is in place. Endotracheal tube is in place. CARDIOVASCULAR SYSTEM: S1, S2 audible. LUNGS: The patient noted moderate reduction in the breath sounds was noted in the lungs bilaterally. ABDOMEN: Soft, obese, nontender. EXTREMITIES: Chronic venous stasis pigmentation changes of the patient with some edema of the lower extremity, has been wrapped with the Alvin bandage. LABORATORY DATA: Lactic acid of the patient and the labs for the patient on 03/31/2017, for the patient on admission was 2.7. PT/PTT for the patient on 03/31/2017, INR 2.7, which is therapeutic. CMP for the patient of 03/31/2017 shows glucose 156, BUN and creatinine were normal. Remaining CMP of the patient was noted as albumin 2.9, otherwise normal. The followup lactic acid noted at 1.9 with the other additional assessment. CBC of the patient on 04/01/2017, WBC count 3.7, hemoglobin 11.7, hematocrit of 37.9, platelet count 94,000. The BMP of the patient on 04/01/2017, BUN 26, creatinine was normal. CO2 of 35 at that time. Labs on this patient for this morning CBC: WBC count 6.1, hemoglobin 11.9, hematocrit 39.3, platelet count was noted 116,000 partially improved from previous labs. CMP this morning, BUN 35, creatinine 1.65, glucose of 199. Potassium was 6.5. CO2 of 37. Troponin for the patient this morning so far noted negative and normal. Arterial blood gas of the patient that was done this morning for the patient, pH of 7.20, pCO2 of 90.2, pO2 of 211 before intubation and mechanical ventilation. The arterial blood gas of the patient post-intubation, mechanical ventilation, 3 hours later, pH of 7.38, pCO2 of 55.3, pO2 of 177, 60% oxygen. The endotracheal aspirate Gram stain for this patient shows moderate white blood cells, few gram-positive cocci in pairs and [place], [place] REPORT OF CONSULTATION NAME: JENN PHILLIPS UNIT #: [id number] ROOM: [place] [address] DOCTOR[facility] B[facility] [birth year] clusters with pending results. Culture of the wound for the patient large growth of gram-positive cocci were noted. The chest x-ray of the patient shows endotracheal tube was noted in appropriate position as well. Pulmonary edema picture for the patient was also suspected with the pleural effusions as well. Atelectasis of the patient of the lower lungs for this patient also noted. IMPRESSION: 1. The patient who has been currently noted with acute hypoxic and hypercapnic respiratory failure related to the area of atelectasis of the lower lungs as well as superimposed congestive heart failure is very likely. 2. History of obstructive sleep apnea disorder, noncompliant with the treatment. 3. History of cardiomyopathy with systolic dysfunction, known previously. 4. History of coronary artery disease. 5. Acute kidney injury of the patient related to diuretic therapy for this patient as well as most likely related to the current intravascular volume depletion would be likely. 6. The patient with chronic severe obesity as well. 7. Possibility of mucus impaction of the airways of the patient will be also suggested for this patient as the CT scan of the chest for the patient was done for the patient on 04/03/2017. PLAN OF TREATMENT: Continue the suctioning for the patient intermittently from the endotracheal aspirate monitoring the anticoagulation. Consider possible bronchoscopy in the next 24 hours for the patient upon further stability of the respiratory status. Currently, the patient has been improving and requiring lower amount of FIO2 supplementation. Ventilator bundle management for the patient will be continued for this patient and in addition of the IV Protonix. Discontinuation of the oral Protonix. Peridex for the patient was also ordered. The patient to rinse the mouth 15 mL b.i.d. Head side of his bed will be elevated. The feeding was started for this patient with the use of Glucerna for this patient, goal of up to 70 mL an hour. The prealbumin level is ordered to exactly assess the protein calorie status of the patient and the nutritional status. Supportive therapy, plan of management. The wound management for the patient per the wound manager wealth management. Possibility of acute pneumonia cannot be completely excluded for this patient. The patient will also benefit from use of the antibiotics for the patient, the medical management of the antibiotics based on the culture results. Supportive therapy, plan of management, other usual care. Total time pulmonary critical care evaluation and management was 40 minutes. [place], [place] REPORT OF CONSULTATION NAME: JENN PHILLIPS UNIT #: [id number] ROOM: [place] [address] DOCTOR: SAMM ROSS MD BIRTHDATE: [birth year] SAMM CERDA MD CM:CONSTR:REPORT OF CONSULTATION 1639 04/04/17 0952 interface
--- NOTE | ~2017-03-31 | PR ---
[place], [place] PROGRESS NOTE NAME: JENN PHILLIPS UNIT #: [id number] ROOM: [place] [address] DOCTOR: ZAIDA HAY MD,SAMM BIRTHDATE: [birth year] DOS: 04/15/2017 PULMONARY CRITICAL CARE EVALUATION AND MANAGEMENT NOTE SUBJECTIVE: The patient was still treated in intensive care unit and was seen today. He has been in the process of transfer to the [facility]. The ambulance service of the patient noted a problem for transfer because of the patient's size. However, the patient has been made some arrangement for transfer today by different ambulance company. The patient remains on mechanical ventilator and off sedation. He has not been noted ____ improvement in the mental status in the last 48 hours off any sedation. He was also noted left gaze for this patient with eyes examination. Orogastric tube of the patient and endotracheal tube remains in place as well. The patient has been continued getting feeding. The IV heparin of the patient was continued. The other medication was also continued previously including the antibiotics by direction of Infectious Disease Services. He was noted with a low grade fever of 100.5 degrees oral temperature, otherwise noted normal. The respiratory rate ranged between 22-21 with spontaneous breathing. The heart rate of patient ranges between 89-67 with atrial fibrillation, blood pressure 124/69-116/64. A pulse oxygen saturation of the patient noted on 30% oxygen as 95% saturation. The PEEP has been decreased to 8 cm yesterday, has been kept the same. PHYSICAL EXAMINATION: HEENT: The patient is orally intubated. NECK: Supple. Head was atraumatic. CARDIOVASCULAR SYSTEM: S1, S2 audible. LUNGS: Mild to moderate decreased breath sounds were noted in the lungs bilaterally. ABDOMEN: Soft and obese. Bowel sounds present. EXTREMITIES: Shows no significant edema. Chronic obesity was noted. LABORATORY DATA: INR today was 1.5, PTT 68, which is therapeutic. CMP that was done this morning for this patient was noted as BUN 91, creatinine 2.22, glucose 300, carbon dioxide 33, bilirubin 1.6. CBC 04/15/2017, hemoglobin is 12.7, hematocrit 39.3, platelet count 155,000, WBC count of 7000. The culture of the endotracheal aspirate which were repeated on 04/12/2017 showed light growth of yeast. There were no other bacterial isolation. IMPRESSION: 1. The patient with persistent acute hypercapnic and hypoxic respiratory failure, which has been improving. Oxygen requirement has been decreased. 2. Acute kidney injury of the patient and azotemia as well. 3. Atrial fibrillation of the patient well controlled at this time. Heart rate less than 100. Anticoagulation noted in progress. 4. Change in mental status persists for the patient. Possibility of acute stroke for this patient with current gaze noted in the left side will be likely. 5. The patient with resolving acute congestive heart failure as well with the improvement in the edema. 6. Suspected obstructive sleep apnea disorder. [place], [place] PROGRESS NOTE NAME: JENN PHILLIPS UNIT #: [id number] ROOM: [place] [address] DOCTOR: ZAIDA HAY MD,SAMM BIRTHDATE: [birth year] PLAN OF TREATMENT: Transfer the patient to [facility] for the patient for further assessment and management for neurologic assessment and medical management of the current ongoing acute critical illnesses. Continue nutritional support. Continue bronchodilators. Continue antibiotics. Monitor any other cultures. Usual care, the plan of therapy and care. Total time for pulmonary critical care evaluation and management was 33 minutes. SAMM CERDA MD CM:PNTRANS [id number] SAMM HAY MD 04/16/17 0913 interface
--- NOTE | ~2017-03-31 | PR ---
[place], [place] PROGRESS NOTE NAME: JENN PHILLIPS UNIT #: [id number] ROOM: [place] [address] DOCTOR: ZAIDA HAY MD,SAMM BIRTHDATE: [birth year] DOS: 04/05/2017 CRITICAL CARE EVALUATION AND MANAGEMENT SUBJECTIVE: The patient remains on mechanical ventilator, sedated, bronchoscopy completed yesterday. The patient diuretic therapy of the patient was also completed. The endotracheal aspirate for this patient was identified with the findings of Staph aureus infection, which was noted MSSA species. The patient has not been noted with any hemodynamic instability, continues getting intravenous vancomycin as well. Heart rate of the patient noted better controlled today. OBJECTIVE: VITAL SIGNS: Shows the temperature 99.2 degrees Fahrenheit, respiratory rate 14-12, heart rate of 92-78, blood pressure 116/58-127/64. Intake for the patient is 2000 mL. Output mL, pulse oxygen saturation with 40% oxygen supplementation and 95% saturation. HEENT: The patient currently orally intubated. Orogastric tube is in place. NECK: Supple. CARDIOVASCULAR SYSTEM: S1, S2 audible. LUNGS: Showed severe reduced breath sounds were noted in the lungs bilaterally. ABDOMEN: Soft, severely obese. EXTREMITIES: Shows significant edema. CENTRAL NERVOUS SYSTEM: Currently, the patient sedated. LABORATORY DATA: INR today noted 1.5, subtherapeutic. CBC of the patient this morning: WBC count was normal 4.8, hemoglobin 11, hematocrit 35.0, platelet count 98,000. Arterial blood gas of the patient assist control mode, 50% oxygen, pH of 7.43, pCO2 of 50.2, pO2 of 102. CMP this morning, glucose 161, BUN 28, creatinine was normal at 1.22. Carbon dioxide 35. Endotracheal aspirate of the patient's cultures was noted as Staph aureus. Culture of the bronchial washings of the patient yesterday was noted as normal karen preliminary findings, culture results were pending. Gram stain of the bronchial washing of the patient noted with many white blood cells, no microorganisms seen. Chest x-ray of the patient that was done this morning for the patient was reviewed as well shows endotracheal tube noted in appropriate position. Evidence of area of atelectasis, infiltration. Elevation of right hemidiaphragm for the patient was noted with finding of congestive heart failure. IMPRESSION: 1. The patient with acute bacterial pneumonia with Staph aureus. 2. Acute hypoxic respiratory failure. 3. Superimposed acute congestive heart failure for this patient with systolic dysfunction. 4. Chronic morbid obesity. 5. Clinical suspicion of obstructive sleep apnea disorder. 6. Mild azotemia combination from the use of the diuretic therapy. 7. Anticoagulation noted subtherapeutic, which has been managed with gradual increasing the dose of the Coumadin to bring to the INR level. [place], [place] PROGRESS NOTE NAME: JENN PHILLIPS UNIT #: [id number] ROOM: [place] [address] DOCTOR: ZAIDA HAY MD,SAMM BIRTHDATE: [birth year] PLAN OF TREATMENT: The antibiotic the patient will be patient after bronchoscopy to the current organism management, current antibiotic should suffice for the patient for the medical management of underlying acute pneumonia. Supportive therapy, plan of management. Usual care, other treatment plan of management as previously. Total time pulmonary critical evaluation and management was 37 minutes. SAMM CERDA MD CM:PNTRANS [id number] SAMM HAY MD 04/06/17 0336 interface
--- NOTE | ~2017-03-31 | PR ---
[place], [place] PROGRESS NOTE NAME: JENN PHILLIPS UNIT #: [id number] ROOM: [place] [address] DOCTOR: ZAIDA HAY MD,SAMM BIRTHDATE: [birth year] DOS: 04/09/2017 PULMONARY CRITICAL CARE EVALUATION AND MANAGEMENT SUBJECTIVE: The patient was seen and examined on 04/09/2017. He remains on mechanical ventilator. The diuretic therapy has been continued with high dose of intravenous Bumex. The patient was sedated with the use of IV Diprivan. He has not been noted with any acute hemodynamic instability. Did not require any vasopressor therapy. The anticoagulation was continued for this patient as well. The patient was noted with oxygen desaturation as the patient was supplementation. The FiO2 supplementation was increased to 100% for this patient. The patient will later on switch to the pressure control mechanical ventilation for the medical management of severe hypoxemia. The patient was started on a pressure of 30 and PEEP of 14 was noted optimal PEEP. He has not been noted with any other acute new changes at this time. The anticoagulation was continued. The feeding was continued, which was well tolerated for protein-calorie malnutrition. OBJECTIVE: VITAL SIGNS: For the patient, which has been recorded showed the temperature of the patient noted as normal. The respiratory rate of the patient recorded as 16-12. Heart rate of 85-75. The blood pressure 104/65-142/73. Pulse oxygen saturation of the patient was noted as 92% saturation on 80% oxygen. HEENT: Examination shows the patient remains intubated. NECK: Supple. Orogastric tube is in place. CARDIOVASCULAR: S1, S2 audible. LUNGS: The patient was noted with moderate reduced breath sounds. ABDOMEN: Noted soft and obese. Bowel sounds present. EXTREMITIES: Still shows edema, which has been gradually improving in the upper and lower extremities. Noted with healing wound for this patient of the lower extremity, superficial skin wounds. CENTRAL NERVOUS SYSTEM: The patient is currently sedated. LABORATORY DATA: Arterial blood gas of the patient that was done yesterday shows 100% oxygen, pH of 7.54, pCO2 of 45, pO2 of 176 with pressure control mechanical ventilation. Repeat arterial blood gases later on 80% oxygen, pH of 7.58, pCO2 of 42, pO2 of 163. CBC of the patient this morning, WBC count 4.5, hemoglobin 11.2, hematocrit 35.8, platelet count 99,000. PT/INR was noted at 1.3, which is subtherapeutic. CMP of the patient this morning, glucose 167, BUN 34, creatinine 1.1. Potassium 3.1, CO2 of 38, chloride of 97. Chest x-ray was done for the patient this morning was noted with cardiomegaly, small pleural fluid, area of atelectasis, infiltration left lower lobe was noted. Endotracheal tube noted in appropriate position. The NG tube in the stomach. IMPRESSION: 1. The patient with severe acute hypoxic and hypercapnic respiratory failure with current worsening for this patient was noted secondary to V/Q mismatch. 2. Chronic anticoagulation, subtherapeutic, treated with IV anticoagulation with heparin and use of the Coumadin. 3. Hyperkalemia secondary to diuretic therapy. [place], [place] PROGRESS NOTE NAME: JENN PHILLIPS UNIT #: [id number] ROOM: [place] [address] DOCTOR: SAMM ROSS MD BIRTHDATE: [birth year] 4. Mild acute kidney injury and azotemia secondary to diuretic therapy. 5. Severe morbid obesity with suspected obstructive sleep apnea disorder. 6. Persistent thrombocytopenia, most likely medication induced. 7. Acute bacterial pneumonia for this patient, status post bronchoscopy. 8. The ultrasound of the liver for the patient was also obtained and that shows cholelithiasis without evidence of cholecystitis. 9. Cirrhosis of the liver for the patient was also suggested as well. 10. Pancytopenia could also result from cirrhosis of the liver. PLAN OF TREATMENT: Continue current antibiotics, bronchodilators, pressure control mechanical ventilation. Continue diuretic therapy as well. Continue medical management for atrial fibrillation. Heparin for this patient to maintain a therapeutic PTT. Antibiotic per recommendation of Infectious Disease Services. Monitoring temperature curve. Monitoring the chest x-ray. Gradual reduction of the oxygen will be done with pressure control mechanical ventilation. Supportive therapy as a plan of management and care. Usual treatment. Total time for pulmonary critical care evaluation and management was 37 minutes. SAMM CERDA MD CM:PNTRANS [id number] SAMM HAY MD 04/15/17 0941 interface
--- NOTE | ~2017-03-31 | PR ---
[place], [place] PROGRESS NOTE NAME: JENN PHILLIPS UNIT #: [id number] ROOM: [place] [address] DOCTOR: AMY ROGERS MD BIRTHDATE: [birth year] DOS: 04/04/2017 SUBJECTIVE: This patient has mild cardiomyopathy and chronic atrial fibrillation. He somewhat noncompliant and was admitted to the hospital because of increasing shortness of breath and swelling in the legs and had to be intubated because of respiratory failure. He has been getting 1 mg of bumetanide t.i.d. and is on metoprolol 75 mg b.i.d. OBJECTIVE: GENERAL: He is intubated. He is not tachypneic. VITAL SIGNS: Temperature is normal. NECK: JVP is greater than 15 cm of water. LUNGS: Lot of crackles with reduced breath sounds. EXTREMITIES: 3+ left pedal edema and 2+ right pedal edema. LABORATORY DATA: Monitor shows atrial fibrillation with heart rate around 120 per minute. Previous echocardiogram had demonstrated an LV ejection fraction of about 45%. CT scan yesterday demonstrated pulmonary edema, effusion and cirrhosis of the liver and splenomegaly. IMPRESSION: 1. 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 2. Atrial fibrillation with rapid ventricular rate is heart function. 3. Cirrhosis of the liver may be from chronic heart failure. RECOMMENDATIONS: 1. Increase bumetanide to 2 mg every 8 hours, dose should be increased if necessary even if renal function seemed to get worse. I think it is important to unload all the above volume he has. 2. Atrial fibrillation with rapid ventricular rate. He is on 75 mg of metoprolol b.i.d. and systolic blood pressure in the 90s, digoxin 0.25 mg IV then 0.25 daily has been ordered, target heart rate should be in the 80s. I saw this patient on behalf of Dr. Ford. [place], [place] PROGRESS NOTE NAME: BRANNON PHILLIPSPaula Iraheta UNIT #: [id number] ROOM: [place] [address] DOCTOR: AMY ROGERS MD BIRTHDATE: [birth year] AMY ROGERS MD CM:PNTRANS [id number] AMY ROGERS MD 04/04/171807 interface
--- NOTE | ~2017-03-31 | PR ---
[place], [place] PROGRESS NOTE NAME: JENN PHILLIPS UNIT #: [id number] ROOM: [place] [address] DOCTOR: JOSHUA CARMONA M.D. BIRTHDATE: [birth year] DOS: 04/08/2017 WOUND CARE PROGRESS NOTE SUBJECTIVE: The patient was transferred over from the last time I saw to the ICU for respiratory failure. He remains intubated. I was asked to evaluate the wounds again for possible change in therapy. The dressings were removed. The wounds look good. The wound on the right leg appears healed. The left lower leg wounds also are much improved. There is just a very small superficial ulcer that is clean with no visible necrotic tissue on the left leg where the blister had been earlier in the week. The rest of the wounds appear to be healed. The arterial studies showed some possible tibial disease bilaterally. They were unable to obtain pressures. Culture of the wound grew some Staph aureus. ASSESSMENT AND PLAN: Chronic venous stasis ulcerations, most of the wounds appear stable and improved. There is still 1 small ulcer that is present and it looks clean and no signs of infection. It is okay to change from Aquacel Silver to the TheraHoney and Versatel for now, that is fine and we can use the Tubigrip for edema control for now as tolerated as long as it does not become too tight. He has some vascular disease on imaging study. This could be addressed further when he is stabilized. ADDENDUM VITAL SIGNS: Today shows a T-max of 100.3, pulse of 86, respirations 12-28, blood pressure is 106/59, pulse ox is 95% on the ventilator. JOSHUA CARMONA MD CM:PNJENSEN [id number] JOSHUA CARMONA M.D. 04/09/17 1329 interface
--- NOTE | ~2017-03-31 | PR ---
[place], [place] PROGRESS NOTE NAME: JENN PHILLIPS UNIT #: [id number] ROOM: [place] [address] DOCTOR: ZAIDA HAY MD,SAMM BIRTHDATE: [birth year] DOS: 04/14/2017 SUBJECTIVE: He remains on mechanical ventilator. Sedation has been discontinued yesterday. The patient has not been noted arousable with the vocal commands. The movement was noted painful stimuli. He has not been noted any acute hemodynamic instability. The temperature of the patient noted as low grade at the present time. He has been continued with feeding, which was tolerated. Mechanical ventilation continued with volume control, assist control mode mechanical ventilation as well with 40% oxygen, PEEP of 12. OBJECTIVE: VITAL SIGNS: For the patient shows a normal temperature, respiratory rate 21, heart rate 72, blood pressure 110/69-113/59. Intake for this patient is 2200 mL, output 3.252 liters with a negative fluid balance of 970 mL. Pulse oxygen saturation of the patient was recorded as 98% saturation, 99% on 40% oxygen. HEENT: The patient remained orally intubated, orogastric tube is in place. NECK: Supple. CARDIOVASCULAR: S1, S2 audible. LUNGS: The patient noted with moderate decreased breath sounds without any wheezing or crackles. ABDOMEN: Soft, obese, nontender. EXTREMITIES: Shows mild edema. LABORATORY DATA: INR today noted 1.4, which is subtherapeutic. PTT was noted as therapeutic 65.3. The culture of the urine no bacterial growth. Endotracheal aspirate of the patient 29 for the patient showed no bacterial growth, final culture results were pending. CBC this morning, WBC count 5.7, hemoglobin 12, hematocrit 37.1, platelet count this patient was noted 126,000 mildly decreased. Arterial blood gas on 40% oxygen, pH of 7.55, pCO2 of 39 and pO2 of 179. The CMP of this morning, BUN of 91, creatinine 2.06. The glucose of 287. Potassium 3.4, carbon dioxide 36. IMPRESSION: 1. The patient who has been currently noted with acute persistent hypercapnic and hypoxic respiratory failure. Improvement in the oxygenation was continued with current mechanical ventilation. 2. Change in mental status. The patient is metabolic in nature, rule out any intracranial pathologies as well. 3. Atrial fibrillation. The patient is currently getting anticoagulation, therapeutic PTT was noted with subtherapeutic INR for this patient. PLAN OF TREATMENT: Coumadin dose continue to be adjusted to maintain a therapeutic INR as the PTT was noted therapeutic until the INR therapeutic will be noted. Monitoring the culture results. No other changes in the antibiotics for the patient will be necessary. Follow the recommendation of Nephrology service. The patient was also noted with acute kidney injury, which has been noted essentially stable from yesterday. Continue the protein calorie malnutrition and management. The patient with the nutritional support. The prealbumin of the patient was noted as 13 today, which has been gradually improving. Continuation of the supportive therapy, plan of management. The [place], [place] PROGRESS NOTE NAME: JENN PHILLIPS UNIT #: [id number] ROOM: [place] [address] DOCTOR: SAMM ROSS MD BIRTHDATE: [birth year] patient will be ordered CT scan of the head for assessment of any intracranial bleed or other neurologic event. The patient will require the Neurology consultation as well for assessment of mental status changes if continues to remains in mental status changes. The family members also wishing the patient transfer to tertiary care facility. The case was discussed with Dr. Frost to make arrangement patient transferred to a tertiary care hospital in [facility] [address] or [facility] for this patient whatever desired. In the meantime, continue other supportive therapy, plan of management. Usual care. Supportive therapy, other plan of care and management plan. Total time for pulmonary critical care evaluation and management was 36 minutes. SAMM CERDA MD CM:PNTRANS [id number] SAMM HAY MD 04/15/17 0013 interface
--- NOTE | ~2017-03-31 | PR ---
[place], [place] PROGRESS NOTE NAME: JENN DHALIWAL UNIT #: [id number] ROOM: [place] [address] DOCTOR: AMY ROGERS MD BIRTHDATE: [birth year] DOS: 04/05/2017 I am seeing this patient on behalf of Dr. Ford. Mrs. Dhaliwal was at bedside, and she tells me that her is fairly active, climbs stairs and apparently, he had become increasingly short of breath along with palpitations where he felt his heart will just would pop out of his chest. He had no chest pain and apparently, the Bumex for 90 days cost 140 dollars, which they could not afford. He remains intubated. He is not tachypneic. JVP is difficult to assess and has some crackles bilaterally. Edema in the lower extremity, still has at least 2+. There is some minimal edema in the lateral part of the abdomen. He is on 2 mg of Bumex t.i.d. intravenously and only with 700 mL fluid balance for the last 24 hours. BUN is 28, creatinine 1.22, potassium 3.6. Monitor shows atrial fibrillation with rate in the 80s. IMPRESSION: Chronic atrial fibrillation without rapid ventricular rate, which is being ____ and digoxin. Heart failure which is substantial add Bumex 2 mg t.i.d. He still will be continued and adding the small dose of digoxin I think will help. AMY ROGERS MD CM:PNTRANS [id number] AMY ROGERS MD 04/06/17 1312 interface
--- NOTE | ~2017-03-31 | PR ---
[place], [place] PROGRESS NOTE NAME: JENN PHILLIPS UNIT #: [id number] ROOM: [place] [address] DOCTOR: ZAIDA HAY MD,SAMM BIRTHDATE: [birth year] DOS: 04/04/2017 PULMONARY CRITICAL CARE EVALUATION SUBJECTIVE: The patient remains on mechanical ventilator and sedated. He has not been noted with any acute hemodynamic instability at the present time. The patient has not been reported any symptoms of hemoptysis. He has been kept n.p.o. the patient past midnight, bronchoscopy is planned today because of the abnormal finding noted on CT scan of the chest. Sedation was continued with IV Diprivan. OBJECTIVE: VITAL SIGNS: For the patient shows normal temperature, respiratory rate of 14-12, heart rate 107-114. The blood pressure noted as 104/65 for the patient 90/51. Intake for the patient recorded 1.664 liter, output mL. Pulse oxygen saturation 40% oxygen 91-92% saturation recorded. HEENT: The patient remained orally intubated. NECK: Supple. CARDIOVASCULAR SYSTEM: S1, S2 audible. LUNGS: Noted decreased breath sounds noted in the lungs bilaterally in the lower lungs. With occasional crackles. ABDOMEN: Soft, nontender. LABORATORY DATA: Culture of the urine for patient no bacterial growth for the patient from the 20 of this month. The culture of the endotracheal aspirate for the patient was noted normal karen. Gram stain for the patient of yesterday, 04/03/2017, moderate white blood cells, few gram-positive cocci in clusters. CBC of this morning, WBC count 4.2, hemoglobin 10.3, hematocrit 32.7, platelet count 94,000. The CMP of the patient this morning, BUN 34, creatinine 1.41, glucose 142. Carbon dioxide 34. Prealbumin is 11. Ammonia level was noted as 54. The ABG this morning, pH of 7.45, pCO2 of 46.5, pO2 of 79.6 and 40% oxygen assist control mode on mechanical ventilation. The chest x-ray of the patient that was done this morning for the patient was reviewed as well shows endotracheal tube was noted in appropriate position with the previous changes. The patient's pleural fluid and other remains unchanged. IMPRESSION: 1. The patient who has been noted with current acute severe hypoxic respiratory failure. 2. Pleural fluid. The patient noted area of compression atelectasis for this patient. 3. Possibility of mucus impaction was also considered of the right lower lobe for this patient as well with the CT scan findings of the chest yesterday. 4. Acute congestive heart failure, peripheral edema. 5. Chronic venous stasis pigmentation changes of the lower extremity of the patient with superimposed edema as well. 6. Moderate severe protein calorie malnutrition with prealbumin 11. PLAN OF TREATMENT: Continue mechanical ventilation of the patient. Proceed with bronchoscopy as planned. Continuation of IV diuretic therapy, which has [place], [place] PROGRESS NOTE NAME: JENN PHILLIPS UNIT #: [id number] ROOM: [place] [address] DOCTOR: ZAIDA HAY MD,SAMM BIRTHDATE: [birth year] been continued with IV Bumex. Continue anticoagulation of the patient at this time. Bronchodilator. Maximal nutritional support for this patient. Protein calorie support for the patient will be increased for this patient as well with the use of current medical management and nutritional support. Supportive plan of management. Ventilator bundle management. Further change in treatment done based on the progression of the illness. Wound culture for this patient noted light growth of gram-positive cocci, Staph aureus, which was noted MSSA species. Any further change in treatment if necessary will be done after the bronchoscopy. Arterial duplex for the patient of his lower extremities completed 04/03/2017 for the patient shows peripheral vascular disease. Total time pulmonary critical care evaluation and management was 34 minutes. SAMM CERDA MD CM:PNTRANS [id number] SAMM HAY MD 04/05/17 0550 interface
--- NOTE | ~2017-03-31 | PR ---
[place], [place] PROGRESS NOTE NAME: JENN PHILLIPS UNIT #: [id number] ROOM: [place] [address] DOCTOR: AMY ROGERS MD BIRTHDATE: [birth year] DOS: 04/08/2017 SUBJECTIVE: He is awake, but still intubated. He failed weaning. He is not tachypneic. IV fluid balance was -1.5 liters for the last 24 hours. He is on Bumex 2 mg t.i.d. intravenously. PHYSICAL EXAMINATION: NECK: JVP seems to be increased. HEART: Sounds irregular at about 80 beats per minute. LUNGS: Crackles are present in both lungs. LABORATORY DATA: Chest x-ray demonstrated pulmonary edema. IMPRESSION: 1. This patient has heart failure and is diuresing. Renal function is just fine. 2. Atrial fibrillation with controlled ventricular rate. RECOMMENDATIONS: To add Zaroxolyn 5 mg before dose of Bumex just once a day. He should be diuresed aggressively while monitoring renal function. I saw this patient on behalf of Dr. Ford. AMY ROGERS MD CM:PNTRANS 1230 AMY ROGERS MD 04/09/17 0615 interface
--- NOTE | ~2017-03-31 | PR ---
[place], [place] PROGRESS NOTE NAME: JENN PHILLIPS UNIT #: [id number] ROOM: [place] [address] DOCTOR: ZAIDA HAY MD,SAMM BIRTHDATE: [birth year] DOS: 04/10/2017 PULMONARY CRITICAL CARE EVALUATION AND MANAGEMENT SUBJECTIVE: The patient remains on mechanical ventilator, still noted with low-grade rectal temperature that was noted as febrile. The oxygen supplementation has been decreased to 50% for the patient in the last 24 hours. The patient remains pressure control mechanical ventilation, PEEP of 14 and pressure of 16. OBJECTIVE: VITAL SIGNS: For the patient which has been recorded showed the temperature of the patient noted as normal. The respiratory rate of the patient recorded as 16-18, heart rate 74. Blood pressure 119/65-103/65. The temperature noted at 100.8 degree Fahrenheit. CENTRAL NERVOUS SYSTEM: The patient is arousable. The patient with reduction in the sedation. HEENT: The patient remained orally intubated. NECK: The neck was supple, short and obese. CARDIOVASCULAR: S1, S2 audible. LUNGS: The patient was noted with moderate decreased breath sounds bilaterally. ABDOMEN: Soft and obese. EXTREMITIES: Shows mild edema. LABORATORY DATA: Arterial blood gas, pH of 7.56, pCO2 of 45.5, pO2 of 113, pressure control mechanical ventilation. CBC of the patient this morning: WBC count of 4.6, hemoglobin 11.3, hematocrit 35.3, platelet count 103,000. CMP this morning, BUN 45, creatinine 1.45, glucose 207. Potassium was 2.9, chloride of 93, carbon dioxide of 42. Ultrasound for this patient was done yesterday of the right upper quadrant, does not show any acute ____ changes were noted. Chest x-ray of the patient that was done, 1 view, the patient was reviewed, shows chest tube remains in place with improvement in the aeration continued including in the left lower lobe with small left-sided pleural fluid were noted, right-sided pleural fluid of the patient was improving. The congestive heart failure findings were also resolving. IMPRESSION: 1. Persistent acute severe hypoxic respiratory failure for the patient as well. 2. Metabolic and respiratory alkalosis. 3. The patient with morbid obesity. 4. Chronic anticoagulation patient. 5. Metabolic alkalosis secondary to diuretic therapy and intravascular volume depletion. 6. Suspected obstructive sleep apnea disorder as well. 7. Atrial fibrillation. PLAN OF TREATMENT: The oxygen supplementation has been decreased to 40% at the present time. Bronchodilators to be continued for the patient as well. Sedation for this patient has been noted adequate at this time. Addition of the Diamox of the patient to the treatment. Severe hypokalemia needs to be [place], [place] PROGRESS NOTE NAME: JENN PHILLIPS UNIT #: [id number] ROOM: [place] [address] DOCTOR: SAMM ROSS MD BIRTHDATE: [birth year] supplemented for the patient and further hypokalemia would occur with the use of the Diamox. Other supportive therapy, plan of management and monitor chest x-ray. Assessment and management of the patient and the progression of Illness In general, has been discussed in detail with the patient's and [id number]. Total time for the patient pulmonary critical care evaluation and management for the patient was 42 minutes. SAMM CERDA MD CM:PNTRANS [id number] SAMM HAY MD 04/11/17 0529 interface
--- NOTE | ~2017-03-31 | PR ---
[place], [place] PROGRESS NOTE NAME: JENN PHILLIPS UNIT #: [id number] ROOM: [place] [address] DOCTOR: ZAIDA HAY MD,SAMM BIRTHDATE: [birth year] DOS: 04/07/2017 SUBJECTIVE: The patient was seen and examined on 04/07/2017 in the intensive care unit. Sedation has been discontinued for the patient for about 5 hours noted with partial improvement in the mental status. The patient was started back on the intravenous Diprivan that has been continued. Currently, the patient was noted deeply sedated. He has not been showing any hemodynamic instability. The edema of the extremities of the patient was resolving. Diuretic therapy for this patient was continued intravenously Bumex 2 mg every 8 hours. He has not been noted any excessive secretion production from the endotracheal tube. OBJECTIVE: VITAL SIGNS: Low grade fever noted. Rectal temperature is 100-100.5 degree Fahrenheit intermittently. HEENT: Examination of patient shows no new changes. The patient remained orally intubated. Orogastric tube is in place. NECK: Supple. CARDIOVASCULAR: S1, S2 is audible. LUNGS: The patient was noted without any wheeze or crackles. ABDOMEN: Soft, nontender. He was severely obese. EXTREMITIES: The patient shows mild edema at this time with significant reduction of the edema of the upper and the lower extremities was noted since admission. LABORATORY DATA: Arterial blood gas of the patient that was done this morning on 45% oxygen supplementation shows pH of 7.48, pCO2 of 47.6, pO2 of 79.6. The CBC of the patient that was done this morning shows WBC count of 4.4, hemoglobin 11.0, hematocrit 35.4, platelet count of 99,000. PT/INR today noted 1.4 subtherapeutic. CMP this morning, BUN 31, creatinine 1.37, glucose 182. Carbon dioxide 34. Total bilirubin 1.6. Albumin of 2.7. IMPRESSION: 1. The patient with resolving congestive heart failure with bilateral pleural fluid for the patient was noted. 2. Acute persistent hypoxic and hypercapnic respiratory failure as well. 3. The patient with severe morbid obesity. 4. Suspected obstructive sleep apnea disorder. 5. Mild acute kidney injury secondary to volume depletion in the patient with use of diuretic and the congestive heart failure. 6. Chronic anticoagulation. The patient noted subtherapeutic. The INR continued to be monitored with managing the anticoagulation by Cardiology services. 7. Pancytopenia for the patient most likely drug related. 8. Acute bacterial pneumonia with superimposed atelectasis, status post bronchoscopy. PLAN OF MANAGEMENT: Sedation has been completely discontinued for the patient at this time. The mental status will be monitored closely. The patient would be started back on sedation after that maybe using the Haldol for the patient if [place], [place] PROGRESS NOTE NAME: JENN PHILLIPS UNIT #: [id number] ROOM: [place] [address] DOCTOR: ZAIDA HAY MD,SAMM BIRTHDATE: [birth year] necessary. The weaning will be started for this patient with the use of CPAP 5, pressure support of 10 once the patient noted awake. Other plan of therapy for the patient to be continued as well. Usual care. Further treatment changes will be done based on the progression of the illness. Nutrition support. Continue to optimize the patient for protein calorie malnutrition status. Usual care. All other supportive plan of management and treatments. ADDENDUM Total time of pulmonary and critical care evaluation and management for the patient is 36 minutes. SAMM CERDA MD CM:PNTRANS [id number] SAMM HAY MD 04/08/17 0650 interface
--- NOTE | ~2017-03-31 | CON ---
[place], [place] REPORT OF CONSULTATION NAME: JENN PHILLIPS UNIT #: [id number] ROOM: 508 DOCTOR: SHELBY GROSS MD BIRTHDATE: [birth year] DOS: 04/01/2017 HISTORY OF PRESENT ILLNESS: The patient is a 66-year-old morbidly obese gentleman, well known to me with a history of sleep apnea. He is supposed to be taking Bumex, because of the financial reasons stopped taking the Bumex and changed to Lasix. The patient is readmitted with increasing shortness of breath. The patient was discharged on Bumex, but unfortunately he changed it ____. The patient did have a stress test done recently, showed no evidence of reversible ischemia. The last ejection fraction is about 45-50%. The patient is still complaining of significant leg edema and increasing shortness of breath. This patient has sleep apnea and is supposed to wear the CPAP, and he says that he does not want to use it. PAST MEDICAL HISTORY: History of diastolic heart failure with chronic atrial fibrillation, diabetes mellitus with peripheral leg edema, deep venous thrombosis, history of pulmonary embolism, history of protein-calorie malnutrition. PAST SURGICAL HISTORY: Open heart surgery, hiatal hernia repair, presence of IVC filter. SOCIAL HISTORY: Denies any alcohol abuse. Denies any drug abuse. Denies any tobacco abuse. FAMILY HISTORY: Positive for coronary artery disease. ALLERGIES: None. HOME MEDICATIONS: Aspirin; supposed to be Bumex 2 mg q. 12, but he was changed to Lasix because of financial reasons; metformin; metoprolol; omeprazole; spironolactone; and Coumadin. REVIEW OF SYSTEMS: CONSTITUTIONAL: No fever, no chills. HEENT: No visual disturbances or hearing problems. CARDIOVASCULAR: Denies any chest discomfort. Does have extremity edema. RESPIRATORY: Does have significant shortness of breath. ABDOMEN: Morbid obesity. GENITOURINARY: No dysuria, hematuria. NEUROLOGIC: No syncope. ENDOCRINE: Intact. SKIN: No rashes. PHYSICAL EXAMINATION: VITAL SIGNS: Blood pressure today is 120/80. He is in atrial fibrillation. Heart rate is about 90-100. NECK: Supple, elevated JVD. LUNGS: Diminished breath sounds. HEART: Sounds are irregularly irregular. ABDOMEN: Obese, soft. [place], [place] REPORT OF CONSULTATION NAME: JENN PHILLIPS UNIT #: [id number] ROOM: 508 DOCTOR: SHELBY GROSS MD BIRTHDATE: [birth year] EXTREMITIES: About 3+ edema. NEUROLOGIC: Stable. LABORATORY DATA: Hemoglobin 11.7, hematocrit 37.9. Electrolytes are normal. Creatinine is 1.1. INR is therapeutic to be 2.3. IMAGING: Chest x-ray revealed cardiomegaly without any active pulmonary disease. Venous Dopplers of the legs showed no evidence of DVT. IMPRESSION: The patient with acute on chronic diastolic heart failure with chronic atrial fibrillation, hypertension, diabetes mellitus, chronic leg edema, sleep apnea. RECOMMENDATIONS: Continue with IV Bumex. Put him on 1500 mL fluid restriction. Continue anticoagulation. Continue metolazone and we will follow up. SHELBY GROSS MD CM:CONSTR:REPORT OF CONSULTATION 1601 04/02/17 0321 interface
--- NOTE | ~2017-03-31 | PR ---
[place], [place] PROGRESS NOTE NAME: JENN PHILLIPS UNIT #: [id number] ROOM: [place] [address] DOCTOR: SHELBY GROSS MD BIRTHDATE: [birth year] DOS: 04/13/2017 SUBJECTIVE: The patient is in the intensive care unit, continues to be intubated. He was febrile yesterday. Cultures have been drawn. OBJECTIVE: VITAL SIGNS: His blood pressure is 102/70, heart rate is atrial fibrillation. He is 96% on room air. Heart rate was slightly faster today than yesterday, but it is much better, appears to be sedated also and continues to be on mechanical ventilation. Oxygen supplementation is 40%. The patient's I's and O's is negative 1.5 L yesterday. NECK: Supple, no JVD. LUNGS: Diminished breath sounds. HEART: Sounds are irregularly irregular. ABDOMEN: Obese, soft, nontender. NEUROLOGICAL: Difficult to assess. The patient is sedated. LABORATORY DATA: Hemoglobin 12, hematocrit 38, platelet count is normal. Sodium is 139, potassium 3.1, creatinine is 2.1. IMPRESSION: Sbeyl-ld-raaplpl respiratory failure, chronic atrial fibrillation, acute bacterial pneumonia, small pleural fluid. The patient with fever. Cultures have been done. PLAN: Continue the present care. Continue the weaning protocol as per Dr. Johnson. IV antibiotics. Condition is guarded and we will follow up. SHELBY GROSS MD CM:PNTRANS [phone] SHELBY GROSS MD 04/13/17 0755 interface
--- NOTE | ~2017-03-31 | PR ---
[place], [place] PROGRESS NOTE NAME: JENN PHILLIPS UNIT #: [id number] ROOM: [place] [address] DOCTOR: AMY ROGERS MD BIRTHDATE: [birth year] DOS: 04/10/2017 I am seeing this patient on behalf of Dr. Ford. SUBJECTIVE: The patient has been intubated, he was not responding adequately to 2 mg of bumetanide t.i.d. intravenously, Zaroxolyn was added 2 days ago and diuresis had been excellent. In the last 3 days she is 8 liters fluid negative. OBJECTIVE: GENERAL: He is on the ventilator. VITAL SIGNS: Temperature is normal. Pulse is 88, irregular. Blood pressure 108/70. NECK: JVP does not seem to be elevated. EXTREMITIES: No edema in the lower extremities. His edema in arms has subsided substantially and the edema on his torso has also diminished. LUNGS: Breath sounds ____ substantially with a few adventitious sounds in both lungs. LABORATORY DATA: Chest x-ray demonstrated reduced pleural effusions and less pulmonary congestion. IMPRESSION: 1. Heart failure, has improved. I think respiratory failure is probably related to cardiac decompensation. 2. Atrial fibrillation, rate is adequately controlled, but anticoagulation is insufficient. I discussed this with Dr. Chase. 3. Acute renal insufficiency. Creatinine has gone up to 1.45, but I would still continue using a combination of diuretic to unload more volume. RECOMMENDATIONS: 1. Continue with the current dose of diuretics. 2. IV heparinization for full anticoagulation with the larger doses of warfarin to increase his INR above 2, currently is 1.3. I hope once the pleural effusion subside, pulmonary edema resolves, he will be extubated. [place], [place] PROGRESS NOTE NAME: JENN PHILLIPS UNIT #: [id number] ROOM: [place] [address] DOCTOR: AMY ROGERS MD BIRTHDATE: [birth year] AMY ROGERS MD CM:PNTRANS [phone] AMY ROGERS MD 04/11/17 0521 interface
--- NOTE | ~2017-03-31 | CON ---
[place], [place] REPORT OF CONSULTATION NAME: JENN PHILLIPS UNIT #: [id number] ROOM: [place] [address] DOCTOR: ZAIDA HAY MD,SAMM BIRTHDATE: [birth year] DOS: 04/03/2017 SUBJECTIVE: The patient was seen and examined on 04/03/2017. He remains on the mechanical ventilator at this time, sedated for the patient with IV Diprivan. The patient has a bronchoscopy done couple of days ago for assessment of the endobronchial tree. The CT scan previously was described with finding of area of atelectasis of the right lower lobe. He has not been noted any acute hemodynamic instability, except tachycardia noted, which has been managed with intravenous medications as well as congestive heart failure management was continued with care of the Cardiology Services. Edema of the lower extremities has been noted and the upper extremities are noted partially decreased. However, the edema still noted significant at this time. The patient has been started on feeding, which has been continued. OBJECTIVE: VITAL SIGNS: The patient was noted with a low-grade fever. The patient's rectal temperature 100.8 degree Fahrenheit. The other vital signs for the patient shows respiratory rate ranging between 12-18, heart rate 90-89, blood pressure of 115/52-117/69. Intake of the patient was noted as 1760 mL, output was 2550, negative for 790 mL was noted. HEENT: The patient remained orally intubated. Orogastric tube is in place. NECK: Supple and obese. Head is atraumatic. CARDIOVASCULAR: S1, S2 is audible. LUNGS: Noted moderate decreased breath sounds in the lungs bilaterally. ABDOMEN: Soft, nontender with severe obesity. EXTREMITIES: Shows 2+ pitting edema of the upper and the lower extremities. LABORATORY DATA: CBC Arterial blood gas that was done for this patient shows pH of 7.46, pCO2 of 47, pO2 of 126, 60% oxygen on volume controlled mechanical ventilation. BMP of the patient that was done on 04/06/2017 shows glucose 180, BUN 27, creatinine 1.43, CO2 of 33. PT/INR noted 1.5. CBC of the patient that was done on 04/06/2017 shows WBC count 5.4, hemoglobin 11.5, hematocrit 36.4, platelets count 106,000. Echocardiogram that was done for the patient on 04/05/2017 assessed by the Cardiology Services. The patient was noted with findings of pericardial fat pad versus pericardial effusion. The left ventricular ejection fraction noted as 55-60%, mild dilatation of the ventricle was noted. Urine for Legionella antigen and the strep pneumo antigen both were noted negative. They were done on the 04/03/2017. The digoxin level noted low at 0.79. The chest x-ray of the patient that was taken on 04/06/2017 was noted with evidence of infiltration and noted patchy in the left mid lung for this patient with pleural fluid. Findings of congestive heart failure of the patient was also noted. Right pleural fluid was noted. Endotracheal tube and NG tube were noted in appropriate position. IMPRESSION: 1. The patient who has been currently noted with evidence of acute severe hypoxic respiratory failure on mechanical ventilation, requiring 60% oxygen. 2. Acute congestive heart failure, most likely diastolic dysfunction. The patient still noted peripheral edema. 3. Acute fibrillation for the patient, which has been currently noted better [place], [place] REPORT OF CONSULTATION NAME: JENN PHILLIPS UNIT #: [id number] ROOM: [place] [address] DOCTOR: [facility]AY [facility] BIR[facility]: [birth year] controlled on current medications. 4. Subtherapeutic INR. Digoxin levels has been adjusted. 5. Status post bronchoscopy of the patient with culture results of preliminary shows no bacterial growth, final culture results were pending. 6. Pleural fluid secondary to congestive heart failure. 7. Acute bacterial pneumonia with Gram-positive organisms was also suspected. 8. Chronic severe obesity with suspected obstructive sleep apnea disorder. 9. Mild thrombocytopenia of the patient was also noted mild. 10. Mild acute kidney injury. 11. Pancytopenia for the patient seemed to be improving. PLAN OF TREATMENT: Continuation of the bronchodilators. Continue oxygen supplementation, continue antibiotic, ventilator bundle management. Monitoring of the thrombocytopenia. The patient is currently getting Coumadin for anticoagulation, avoid any heparinized solutions. Monitoring kidney functions closely. Continue diuretic therapy as well. Usual care. All other supportive plan of management. Assessment and management have been discussed with patient's family members. Critical care evaluation and management. Total time pulmonary critical care evaluation and management was 36 minutes. SAMM CERDA MD CM:CONSTR:REPORT OF CONSULTATION 1106 04/14/17 1513 PATRICIA HEARD.Gustavo
--- NOTE | ~2017-03-31 | PR ---
[place], [place] PROGRESS NOTE NAME: JENN PHILLIPS UNIT #: [id number] ROOM: [place] [address] DOCTOR: ZAIDA HAY MD,SAMM BIRTHDATE: [birth year] DOS: 04/08/2017 PULMONARY CRITICAL CARE EVALUATION AND MANAGEMENT SUBJECTIVE: The patient was seen and examined on 04/08/2017. The patient has been noted to be awake. The sedation has been discontinued with the intravenous Diprivan, mental status has improved. He has been kept on CPAP mode of mechanical ventilation several hours, switched back to assist control mode of mechanical ventilation because of the hypoxia. The oxygen requirement has been increased to 70% oxygen this morning with a saturation of oxygen at this time noted at bedside as about 92%-93% saturation. He has not been noted any hemodynamic instability. OBJECTIVE: VITAL SIGNS: The patient noted with low-grade fever, rectal temperature as well. The respiratory rate ranging between 14-31, heart rate 69-100, blood pressure of 107/59-131/72. Intake for the patient was 838, output 2300 mL, negative 1514 mL, pulse oxygen saturation 90% on 70% oxygen. HEENT: Shows head was atraumatic. Eyes nonicterus. CARDIOVASCULAR: S1, S2 is audible. LUNGS: The patient was noted with decreased breaths in the lower portion of the lungs with scattered crackles. ABDOMEN: Soft, obese. EXTREMITIES: Show progressive reduction of the edema of the upper and the lower extremities. LABORATORY DATA: INR today noted 1.4. CBC this morning 04/08/2017, WBC count 4.7, hemoglobin 10.6, hematocrit 34.1, platelet count 91,000. INR was 1.4 today. CMP this morning, BUN 30, creatinine was normal, glucose 212. Arterial blood gas this morning, pH of 7.45, pCO2 of 52.6, pO2 of 164. ABG yesterday for the patient on CPAP, 60% oxygen, pH of 7.43, pCO2 of 51.8, pO2 of 107. Chest x-ray that was done this morning shows bilateral pleural fluids for the patient, area of compression atelectasis. Cultures of the bronchial washing of the patient was noted as normal karen isolation. IMPRESSION: 1. The patient has been currently noted with acute persistent hypoxic respiratory failure secondary to compression atelectasis, acute pneumonia with congestive heart failure, and bilateral pleural fluid. 2. Improving peripheral edema for the patient gradually and progressively. 3. Severe obesity as well as suspected obstructive sleep apnea disorder. 4. Chronic anticoagulation. 5. Pancytopenia for the patient was noted, ____ remains the same in the last 24 hours. 6. Atrial fibrillation for the patient as well. PLAN OF TREATMENT: Continue diuretic therapy, bronchodilators, oxygen supplementation and keep the patient on anticoagulation as well to maintain INR in the therapeutic range. The dose has been gradually increased for the patient for that reason. Monitoring the respiratory status of the patient closely as [place], [place] PROGRESS NOTE NAME: JENN PHILLIPS UNIT #: [id number] ROOM: [place] [address] DOCTOR: ZAIDA HAY MD,SAMM BIRTHDATE: [birth year] well. Oxygen supplementation gradually decreased for the patient based on improvement in the oxygenation. The PEEP for this patient was increased to 8 cm water from 5 cm of water pressure. Sedation will be given with use of the Haldol for the patient as needed, the Diprivan remains discontinued. No other changes in the antibiotics for the patient will be necessary for the patient based on the current culture results. All other supportive therapy, plan of management. Usual treatment. Usual treatment plan of care. Monitoring the pleural fluid. Total time for pulmonary and critical care evaluation and management for the patient was 38 minutes. SAMM CERDA MD CM:PNTRANS [id number] SAMM HAY MD 04/09/17 0611 interface
--- NOTE | ~2017-03-31 | PROC NOTE ---
[place], [place] PROCEDURE NOTE NAME: JENN PHILLIPS UNIT #: [id number] ROOM: [place] [address] DOCTOR: ZAIDA HAY MD,SAMM BIRTHDATE: [birth year] DOS: 04/04/2017 PREOPERATIVE DIAGNOSES: Rule out atelectasis, endobronchial obstruction for the patient. Current abnormal CT scan of the chest. POSTOPERATIVE DIAGNOSES: There were no evidence of endobronchial obstruction noted inflammatory changes of the lung with obtaining endobronchial washing of the patient bilaterally. PROCEDURE DESCRIPTION: Informed consent obtained per the patient's family members. The patient was transferred to the negative pressure room for the bronchoscopy. The sedation was continued with IV Diprivan. The oxygen supplementation was increased to 100% for the procedure. The bronchoscope advanced to the endotracheal tube to the lower part of the trachea. The tracheal lumen was noted small amount of secretion, which was suctioned out. Desire noted sharp. Right upper, right middle, right lower, left upper, lingular lower lobe bronchi were all examined appropriately. The endotracheal tube was noted about 5 cm above the desire level, which was adjusted. Bronchial washing secretions were obtained from all the endobronchial tree bilaterally without any difficulty. There were no endobronchial obstructive lesions noted or mucus plugs. Procedure well tolerated by the patient without any complications. Postoperative findings for this patient will be discussed with the patient's family members later on as well. SAMM CERDA MD CM:PROCNOTE:PROCEDURE NOTE [id number] SAMM HAY MD
--- NOTE | ~2017-03-31 | PR ---
[place], [place] PROGRESS NOTE NAME: JENN PHILLIPS UNIT #: [id number] ROOM: [place] [address] DOCTOR: SHELBY GROSS MD BIRTHDATE: [birth year] DOS: 04/06/2017 SUBJECTIVE: The patient continues to be intubated. The patient examined in the Intensive Care Unit, events noted over the weekend. Dr. Reynolds was covering pa, and Dr. Reynolds saw the patient over the weekend and yesterday. He continues to be intubated on Diprivan drip. The patient went into hypercapnic respiratory failure and underwent bronchoscopy with Dr. Johnson also. OBJECTIVE: VITAL SIGNS: His blood pressure today is 124/65. He is in atrial fibrillation with a controlled ventricular response. HEENT: Pupils are reactive. He is sedated. Elevated jugular venous distention. LUNGS: Diminished air entry with bilateral rales. HEART: Sounds are irregularly irregular. ABDOMEN: Obese, soft, nontender. EXTREMITIES: About trace edema. EKG: Atrial fibrillation with a controlled ventricular response. Chest x-ray showed cardiomegaly with patchy airspace disease in the left mid lung, small right pleural effusion may represent CHF, although superimposed infectious process is difficult to exclude. The patient does have chronic diastolic heart failure. I reviewed the echocardiogram. The patient has a dyskinetic septum with an overall preserved systolic function, diastolic dysfunction, dilated right ventricle. LABORATORY DATA: Shows hemoglobin 11.5, hematocrit 36.4, platelet count is 106, BUN 27, creatinine 1.4. INR is 1.5. IMPRESSION AND PLAN: The patient with acute respiratory failure, diastolic heart failure, chronic obstructive pulmonary disease with hypercapnia, morbid obesity, bacterial pneumonia with Staph aureus, chronic morbid obesity, obstructive sleep apnea, azotemia, chronic atrial fibrillation. RECOMMENDATIONS: Keep the INR around 2, I increased the supplement with subcutaneous Lovenox or heparin until the INR comes up. Continue the diuretics as ordered. Continue the respiratory toilet as ordered. Continue IV antibiotics. CONDITION: Guarded. [place], [place] PROGRESS NOTE NAME: JENN PHILLIPS UNIT #: [id number] ROOM: [place] [address] DOCTOR: SHELBY GROSS MD BIRTHDATE: [birth year] SHELBY GROSS MD CM:SILVANA [id number] SHELBY GROSS MD 04/06/172133 interface
--- NOTE | ~2017-03-31 | PR ---
[place], [place] PROGRESS NOTE NAME: JENN PHILLIPS UNIT #: [id number] ROOM: [place] [address] DOCTOR: ZAIDA HAY MD,SAMM BIRTHDATE: [birth year] DOS: 04/13/2017 SUBJECTIVE: The patient was seen and examined on 04/13/2017, remains on mechanical ventilator and sedated. The patient was cleared off all the forms of sedation. He has now been noted awake at this time. Diuretic therapy has been continued. He continued receiving intravenous antibiotics with volume controlled mechanical ventilation. Continue the patient on 40% oxygen with PEEP of 14 cm water was still noted, needed for the patient's good oxygenation. The patient has not been noted in any acute hemodynamic instability. The feeding of the patient has been tolerated. OBJECTIVE: VITAL SIGNS: Temperature noted intermittently elevated, rectal temperature 101.8 degrees Fahrenheit, normal temperature; respiratory rate 17-16; heart rate 73-64; blood pressure 104/56-112/62. Intake was noted as 2700 mL approximately, output 2300 mL approximately as well. The pulse oxygen saturation on 40% oxygen was 97% saturation. HEENT: The patient orally intubated, orogastric tube is in place. NECK: Supple. CARDIOVASCULAR: S1, S2 audible. LUNGS: The patient was noted with [id number] decreased breath sounds noted in the lungs bilaterally. ABDOMEN: Noted with chronic obesity. Bowel sounds present. EXTREMITIES: Shows improving edema of the lower extremities and upper extremities. LABORATORY DATA: CBC this morning, WBC count 6.0, hemoglobin 12, hematocrit 38.0, platelet count was normal at 147,000. CMP this morning, BUN 85, creatinine 2.17, glucose 275, potassium 3.1, chloride of 90, carbon dioxide 38. Bilirubin 1.5 and albumin 3.0. INR was noted 1.4. The PTT noted therapeutic at 50.7. The arterial blood gas on 40% oxygen, pH of 7.54, pCO2 of 44.5, pO2 of 139 with PEEP of 14 cm of water, tidal volume of 600 mL. Chest x-ray of the patient that was done this morning was reviewed, shows small left pleural fluid noted with area of infiltration with atelectasis. IMPRESSION: 1. The patient has been noted with persistent acute hypoxic respiratory failure. 2. Acute congestive heart failure with diastolic dysfunction. 3. Atrial fibrillation. 4. Subtherapeutic INR for this patient as well. 5. Resolution of the thrombocytopenia. 6. Acute kidney injury of the patient noted secondary to diuretics and congestive heart failure. 7. Acute bacterial pneumonia with intermittent temperature elevation was noted without any other sources of infection known at the present time. PLAN OF TREATMENT: The patient will be continued on heparin until the INR is noted therapeutic. Continue ventilator bundle management. No change in antibiotics at this time will be necessary until the additional culture results [place], [place] PROGRESS NOTE NAME: JENN PHILLIPS UNIT #: [id number] ROOM: [place] [address] DOCTOR: ZAIDA HAY MD,SAMM BIRTHDATE: [birth year] will be available. The bronchodilators for this patient to be continued to help mobilize the secretions. Ventilator bundle management will be continued. Monitor for any additional new culture of the patient, which had already taken to assess for any superimposed infection. Sputum culture with endotracheal aspirate noted as pending with patient's gram stain showed moderate white blood cells, few epithelial cells, no organisms. Urine culture was also decreased. Showed no bacterial growth from yesterday as well. The blood culture results were pending. Obtain another prealbumin level to assess the protein-calorie malnutrition status. The patient responded to nutrition support. Supplementation of the electrolytes for the patient potassium supplementation. Long-term acute care facility consultation could be ordered. Discontinue sedation completely to assess the patient's mental status over the next 24 hours. Decrease the PEEP to 12 cm of water with gradual reduction. The weaning will be continued from mechanical ventilator as tolerated. Total time for pulmonary critical care evaluation and management was 36 minutes. SAMM CERDA MD CM:PNTRANS [phone] SAMM HAY MD 04/14/17 0622 interface
--- NOTE | ~2017-03-31 | PR ---
[place], [place] PROGRESS NOTE NAME: JENN PHILLIPS UNIT #: [id number] ROOM: [place] [address] DOCTOR: ZAIDA HAY MD,SAMM BIRTHDATE: [birth year] DOS: 04/06/2017 PULMONARY CRITICAL CARE EVALUATION AND MANAGEMENT SUBJECTIVE: The patient remains intubated on mechanical ventilation, sedated with IV Diprivan. The patient's mental status was not known since the patient is currently sedated on the IV Diprivan. The temperature noted low grade at 100.8 degree Fahrenheit for this patient. The diuretic therapy for the patient was continued with the use of intravenous Bumex. He was also continued on anticoagulation therapy. He has not been noted with hemodynamic instability. OBJECTIVE: VITAL SIGNS: For the patient, the temperature of the patient noted 100.8 degree Fahrenheit to normal temperature, rectal temperature, respiratory rate 12-18, heart rate of 92-105, blood pressure 124/67-95/52. Intake for this patient is ____ with a negative fluid balance of 790 mL. Pulse oxygen saturation was noted as 95% with 50% oxygen supplementation this morning. HEENT: The patient remains orally intubated, orogastric tube is in place. NECK: Supple and obese and short. CARDIOVASCULAR SYSTEM: S1, S2 audible. LUNGS: The patient was noted with general reduction in the breath sounds bilaterally with occasional crackles, no wheezing. ABDOMEN: Soft, nontender. LABORATORY DATA: The echocardiogram of the patient on 04/05/2017 for the patient was noted as left ventricular ejection fraction 55-60%. CBC this morning; WBC count 5.4, hemoglobin 11.5, hematocrit 36.4, platelet count 106,000. The PT/INR today was noted 1.5 subtherapeutic. Urine for Legionella antigen and Streptococcal pneumonia antigen negative. Dig level 0.79. BMP this morning; BUN 27, creatinine 1.43. Glucose 180. CO2 of 33. Cultures of the bronchial washing of the patient shows as normal karen, preliminary finding of culture results were still pending. The chest x-ray of the patient shows improvement in the aeration, evidence of pleural fluid in the patient still noted on the left and the right side, but the overall aeration is improving, resolving infiltration, atelectasis of the lower lungs. IMPRESSION: 1. The patient was being noted with current acute hypoxic and hypercapnic respiratory failure for this patient, being treated with mechanical ventilation. 2. Bilateral pleural fluid with congestive heart failure and acute pneumonia with gram-positive organism responding and improving with the current treatment. Final cultures results are pending. 3. Anticoagulation has been continued for the patient with atrial fibrillation, currently noted subtherapeutic. Treatment is maximized to maintain a therapeutic INR. 4. Severe morbid obesity for this patient as well with possibility of obstructive sleep apnea disorder, clinically also suspected. 5. Moderate protein-calorie malnutrition. PLAN OF TREATMENT: Monitor culture results and then adjust the antibiotics [place], [place] PROGRESS NOTE NAME: JENN PHILLIPS UNIT #: [id number] ROOM: [place] [address] DOCTOR: SAMM ROSS MD BIRTHDATE: [birth year] accordingly. Continue nutritional support for moderate protein calorie malnutrition. Continue diuretics. We will monitor kidney function of the patient closely and the electrolytes. Discontinue sedation completely and assess the patient's mental status. Once the patient noted appropriate improvement in the mental status for this patient, start the patient on lower dose. The oxygen supplementation has been decreased this morning from 60% to 50% after the arterial blood gases with saturation at this time noted 95%. Continue ventilator point of management and other care plan of management. Usual care, other therapies. Further treatment changes will be done based on the progression of the illness. Critical care evaluation and management and total time for pulmonary critical care evaluation and management was 40 minutes. SAMM CERDA MD CM:PNTRANS [phone] SAMM HAY MD 04/14/17 2012 interface
[2017-03-31 14:34] LABS: HEMATOCRIT 38.3 % (42.0-52.0); HEMOGLOBIN 11.9 g/dl (14.0-18.0); MEAN CELL VOLUME 108.2 fl (80.0-94.0); MEAN CORPUSCULAR HGB 33.6 pg (27.0-31.0); MEAN CORPUSCULAR HGB CONC 31.1 g/dl (33.0-37.0); PLATELET COUNT AUTOMATED 115 10*3/uL (130-400); RED BLOOD COUNT 3.54 10*6/uL (4.50-5.90); RED CELL DISTRI WIDTH 15.7 % (0-14.5); WHITE BLOOD COUNT 4.1 10*3/uL (4.8-10.8)
[2017-03-31 14:42] LABS: INTERNATIONAL NORM RATIO 2.7 (2.0-3.5); PROTHROMBIN TIME 30.1 SECONDS (9.0-12.4)
[2017-03-31 14:51] LABS: ALBUMIN 2.9 gm/dl (3.1-4.5); ALKALINE PHOSPHATASE 84 U/L (45-117); BILIRUBIN, TOTAL 0.8 mg/dl (0.2-1.0); BUN 24 mg/dl (7-24); CARBON DIOXIDE 31 mmol/L (21-32); CHLORIDE 105 mmol/L (98-107); EST GLOM FILT AFRICAN AMERICAN > 60 ml/min; GLUCOSE 156 mg/dL (65-99); MAGNESIUM 1.8 mg/dL (1.5-2.1); POTASSIUM 4.6 mmol/L (3.5-5.1); SGOT/AST 18 IU/L (3-35); SGPT/ALT 25 U/L (12-78); SODIUM 144 mmol/L (136-145); TOTAL PROTEIN 7.6 gm/dL (6.4-8.2)
[2017-03-31 14:52] LABS: TROPONIN I 0.016 ng/ml (<0.045)
[2017-03-31 14:58] LABS: BASOPHIL # 0.1 10*3/uL (0-0.1); BASOPHILS 2 % (0-1); LYMPHOCYTE # 1.1 10*3/uL (1.3-4.4); MONOCYTE # 0.2 10*3/uL (0.1-1.0); NEUTROPHIL # 2.7 10*3/uL (2.3-7.9); NEUTROPHILS 65 % (47-73); TOTAL CELLS COUNTED 100 #CELLS; TOXIC GRANULATION SLIGHT
[2017-03-31 15:00] LABS: PLATELET SUFFICIENCY LOW (NORMAL); POLYCHROMASIA SLIGHT
[2017-03-31 16:31] LABS: LA>2 REFLEX 2 HR DRAW NOW
[2017-03-31 16:56] LABS: LA>2 RFLX FOLLOW UP AT 2 HRS 2.3 mmol/L (0.4-2.0)
[2017-03-31 18:48] LABS: LA>2 REFLEX 4 HR DRAW NOW
[2017-04-01] VITALS: BP 112/72
[2017-04-01 06:42] LABS: BASO % 0.5 % (0.0-1.0); EOS # 0.1 10*3/uL (0.0-0.4); EOS % 1.6 % (1.0-4.0); HEMATOCRIT 37.9 % (42.0-52.0); HEMOGLOBIN 11.7 g/dl (14.0-18.0); LYMPH # 1.1 10*3/uL (1.3-4.4); LYMPH % 28.8 % (27.0-41.0); MEAN CELL VOLUME 107.4 fl (80.0-94.0); MEAN CORPUSCULAR HGB 33.1 pg (27.0-31.0); MEAN CORPUSCULAR HGB CONC 30.9 g/dl (33.0-37.0); MEAN PLATELET VOLUME 11.4 fl (9.6-12.3); MONO # 0.4 10*3/uL (0.1-1.0); MONO % 10.8 % (3.0-9.0); NEUT # 2.2 10*3/uL (2.3-7.9); PLATELET COUNT AUTOMATED 94 10*3/uL (130-400); RED BLOOD COUNT 3.53 10*6/uL (4.50-5.90); RED CELL DISTRI WIDTH 15.8 % (0-14.5); WHITE BLOOD COUNT 3.7 10*3/uL (4.8-10.8)
[2017-04-01 07:10] LABS: HEMOGLOBIN A1c 6.4 % (4.8-5.6)
[2017-04-01 07:14] LABS: BUN 26 mg/dl (7-24); CARBON DIOXIDE 35 mmol/L (21-32); CHLORIDE 103 mmol/L (98-107); EST GLOM FILT AFRICAN AMERICAN > 60 ml/min; GLUCOSE 136 mg/dL (65-99); SODIUM 140 mmol/L (136-145)
[2017-04-01 07:21] LABS: FREE T4 1.32 ng/dl (0.76-1.46)
[2017-04-01 07:25] LABS: INTERNATIONAL NORM RATIO 2.3 (2.0-3.5); PROTHROMBIN TIME 25.7 SECONDS (9.0-12.4)
[2017-04-01 08:00] VITALS: BP 123/90
[2017-04-01 09:51] LABS: FOLIC ACID 9.86 ng/mL (>5.38)
[2017-04-01 12:00] VITALS: BP 115/70
[2017-04-01 20:00] VITALS: BP 111/59
[2017-04-02] VITALS: BP 126/84
[2017-04-02 06:43] LABS: BASO % 0.6 % (0.0-1.0); EOS % 0.6 % (1.0-4.0); HEMATOCRIT 37.2 % (42.0-52.0); HEMOGLOBIN 11.5 g/dl (14.0-18.0); LYMPH # 1.2 10*3/uL (1.3-4.4); LYMPH % 24.4 % (27.0-41.0); MEAN CELL VOLUME 107.8 fl (80.0-94.0); MEAN CORPUSCULAR HGB 33.3 pg (27.0-31.0); MEAN CORPUSCULAR HGB CONC 30.9 g/dl (33.0-37.0); MEAN PLATELET VOLUME 11.5 fl (9.6-12.3); MONO # 0.4 10*3/uL (0.1-1.0); MONO % 8.6 % (3.0-9.0); NEUT # 3.1 10*3/uL (2.3-7.9); NEUT % 65.6 % (47.0-73.0); PLATELET COUNT AUTOMATED 96 10*3/uL (130-400); RED BLOOD COUNT 3.45 10*6/uL (4.50-5.90); RED CELL DISTRI WIDTH 15.7 % (0-14.5); WHITE BLOOD COUNT 4.8 10*3/uL (4.8-10.8)
[2017-04-02 06:56] LABS: BUN 29 mg/dl (7-24); CARBON DIOXIDE 29 mmol/L (21-32); CHLORIDE 101 mmol/L (98-107); EST GLOM FILT AFRICAN AMERICAN > 60 ml/min; GLUCOSE 162 mg/dL (65-99)
[2017-04-02 07:10] LABS: SODIUM 137 mmol/L (136-145)
[2017-04-02 07:17] LABS: POTASSIUM 5.3 mmol/L (3.5-5.1)
[2017-04-02 07:23] LABS: INTERNATIONAL NORM RATIO 2.1 (2.0-3.5); PROTHROMBIN TIME 23.3 SECONDS (9.0-12.4)
[2017-04-02 08:00] VITALS: BP 104/72
[2017-04-02 16:00] VITALS: BP 129/63
[2017-04-02 20:00] VITALS: BP 124/73
[2017-04-03] VITALS (11 sets, daily range): BP systolic 95–121; BP diastolic 57–85
[2017-04-03 03:17] LABS: ABG BASE EXCESS 3.7 mmol/L (-2.0-2.0); ABG CO2 CONTENT 35.1 mmol/L (23-27); ABG HCO3 32.7 mmol/l (22-26); ABG TEMPERATURE 99.1 F (98.0-99.0); ARTERIAL BLOOD GAS PH 7.246 (7.35-7.45)
[2017-04-03 03:22] LABS: HEMATOCRIT 39.3 % (42.0-52.0); HEMOGLOBIN 11.9 g/dl (14.0-18.0); MEAN CELL VOLUME 110.1 fl (80.0-94.0); MEAN CORPUSCULAR HGB 33.3 pg (27.0-31.0); MEAN CORPUSCULAR HGB CONC 30.3 g/dl (33.0-37.0); MEAN PLATELET VOLUME 10.8 fl (9.6-12.3); PLATELET COUNT AUTOMATED 116 10*3/uL (130-400); RED BLOOD COUNT 3.57 10*6/uL (4.50-5.90); RED CELL DISTRI WIDTH 15.9 % (0-14.5); WHITE BLOOD COUNT 6.1 10*3/uL (4.8-10.8)
[2017-04-03 03:31] LABS: INTERNATIONAL NORM RATIO 1.8 (2.0-3.5); PROTHROMBIN TIME 20.1 SECONDS (9.0-12.4)
[2017-04-03 03:38] LABS: ALBUMIN 3.9 gm/dl (3.1-4.5); BILIRUBIN, TOTAL 0.9 mg/dl (0.2-1.0); TOTAL PROTEIN 8.2 gm/dL (6.4-8.2)
[2017-04-03 03:42] LABS: BASOPHIL # 0.1 10*3/uL (0-0.1); BASOPHILS 1 % (0-1); LYMPHOCYTE # 1.2 10*3/uL (1.3-4.4); MONOCYTE # 0.5 10*3/uL (0.1-1.0); NEUTROPHIL # 4.4 10*3/uL (2.3-7.9); NEUTROPHILS 72 % (47-73); PLATELET SUFFICIENCY LOW (NORMAL); TOTAL CELLS COUNTED 100 #CELLS
[2017-04-03 03:45] LABS: POTASSIUM 6.5 mmol/L (3.5-5.1)
[2017-04-03 04:59] LABS: ABG BASE EXCESS 4.3 mmol/L (-2.0-2.0); ABG CO2 CONTENT 37.2 mmol/L (23-27); ABG HCO3 34.5 mmol/l (22-26); ABG TEMPERATURE 99.1 F (98.0-99.0); ARTERIAL BLOOD GAS PH 7.209 (7.35-7.45)
[2017-04-03 07:11] LABS: ALBUMIN 3.6 gm/dl (3.1-4.5); POTASSIUM 5.9 mmol/L (3.5-5.1); TOTAL PROTEIN 7.8 gm/dL (6.4-8.2); TROPONIN I 0.017 ng/ml (<0.045)
[2017-04-03 09:45] LABS: ABG BASE EXCESS 6.6 mmol/L (-2.0-2.0); ABG CO2 CONTENT 34.3 mmol/L (23-27); ABG HCO3 32.6 mmol/l (22-26); ABG TEMPERATURE 97.9 F (98.0-99.0); ARTERIAL BLOOD GAS PH 7.386 (7.35-7.45)
[2017-04-03 09:55] LABS: BILIRUBIN NEGATIVE (NEGATIVE); BLOOD 3+ (NEGATIVE); CLARITY SL CLOUDY (CLEAR); COLOR YELLOW (YELLOW); GLUCOSE NEGATIVE (NEGATIVE); KETONE NEGATIVE (NEGATIVE); LEUKO ESTERASE TRACE (NEGATIVE); NITRITE NEGATIVE (NEGATIVE); PROTEIN NEGATIVE (NEGATIVE); UROBILINOGEN 0.2 E.U./dl (0.2-1.0)
[2017-04-03 10:09] LABS: HYALINE CAST 31-40; RBC 31-40 rbc/hpf (0-2)
[2017-04-03 10:10] LABS: URINE REFLEX COMMENT YES (NO)
[2017-04-03 10:11] LABS: BACTERIA TRACE
[2017-04-04] VITALS (12 sets, daily range): BP systolic 90–120; BP diastolic 46–75
[2017-04-04 05:18] LABS: ABG BASE EXCESS 7.9 mmol/L (-2.0-2.0); ABG CO2 CONTENT 33.8 mmol/L (23-27); ABG HCO3 32.4 mmol/l (22-26); ABG TEMPERATURE 98.5 F (98.0-99.0); ARTERIAL BLOOD GAS PH 7.457 (7.35-7.45); ARTERIAL BLOOD GAS PO2 79.6 mmHg (80-90)
[2017-04-04 06:31] LABS: ALBUMIN 3.2 gm/dl (3.1-4.5); BILIRUBIN, TOTAL 1.9 mg/dl (0.2-1.0); BUN 34 mg/dl (7-24); CARBON DIOXIDE 34 mmol/L (21-32); CHLORIDE 102 mmol/L (98-107); EST GLOM FILT AFRICAN AMERICAN > 60 ml/min; GLUCOSE 142 mg/dL (65-99); MAGNESIUM 1.9 mg/dL (1.5-2.1); PHOSPHOROUS 2.5 mg/dL (2.5-4.9); SGOT/AST 13 IU/L (3-35); SGPT/ALT 21 U/L (12-78); TOTAL PROTEIN 6.8 gm/dL (6.4-8.2)
[2017-04-04 06:33] LABS: ALKALINE PHOSPHATASE 58 U/L (45-117); PREALBUMIN 11 mg/dl (20-40)
[2017-04-04 06:36] LABS: SODIUM 137 mmol/L (136-145)
[2017-04-04 06:44] LABS: BASO % 0.5 % (0.0-1.0); HEMOGLOBIN 10.3 g/dl (14.0-18.0); LYMPH % 24.6 % (27.0-41.0); MEAN CORPUSCULAR HGB 33.6 pg (27.0-31.0); MEAN CORPUSCULAR HGB CONC 31.5 g/dl (33.0-37.0); MEAN PLATELET VOLUME 11.4 fl (9.6-12.3); MONO # 0.4 10*3/uL (0.1-1.0); MONO % 10.5 % (3.0-9.0); NEUT # 2.6 10*3/uL (2.3-7.9); NEUT % 62.9 % (47.0-73.0); PLATELET COUNT AUTOMATED 94 10*3/uL (130-400); POTASSIUM 3.8 mmol/L (3.5-5.1); RED BLOOD COUNT 3.07 10*6/uL (4.50-5.90); RED CELL DISTRI WIDTH 15.9 % (0-14.5); WHITE BLOOD COUNT 4.2 10*3/uL (4.8-10.8)
[2017-04-04 06:45] LABS: HEMATOCRIT 32.7 % (42.0-52.0); MEAN CELL VOLUME 106.5 fl (80.0-94.0)
[2017-04-05] VITALS (12 sets, daily range): BP systolic 90–131; BP diastolic 52–82
[2017-04-05 06:01] LABS: ABG CO2 CONTENT 34.7 mmol/L (23-27); ABG HCO3 33.1 mmol/l (22-26); ABG TEMPERATURE 98.5 F (98.0-99.0); ARTERIAL BLOOD GAS PH 7.434 (7.35-7.45)
[2017-04-05 06:07] LABS: BASO % 0.4 % (0.0-1.0); EOS % 0.8 % (1.0-4.0); LYMPH # 1.1 10*3/uL (1.3-4.4); LYMPH % 23.3 % (27.0-41.0); MEAN CELL VOLUME 106.4 fl (80.0-94.0); MEAN CORPUSCULAR HGB 33.4 pg (27.0-31.0); MEAN CORPUSCULAR HGB CONC 31.4 g/dl (33.0-37.0); MONO # 0.6 10*3/uL (0.1-1.0); NEUT % 63.3 % (47.0-73.0); PLATELET COUNT AUTOMATED 98 10*3/uL (130-400); RED BLOOD COUNT 3.29 10*6/uL (4.50-5.90); RED CELL DISTRI WIDTH 16.1 % (0-14.5); WHITE BLOOD COUNT 4.8 10*3/uL (4.8-10.8)
[2017-04-05 06:16] LABS: INTERNATIONAL NORM RATIO 1.5 (2.0-3.5); PROTHROMBIN TIME 16.5 SECONDS (9.0-12.4)
[2017-04-05 06:19] LABS: ALBUMIN 3.1 gm/dl (3.1-4.5); ALKALINE PHOSPHATASE 62 U/L (45-117); BILIRUBIN, TOTAL 1.3 mg/dl (0.2-1.0); BUN 28 mg/dl (7-24); CARBON DIOXIDE 35 mmol/L (21-32); CHLORIDE 102 mmol/L (98-107); EST GLOM FILT AFRICAN AMERICAN > 60 ml/min; GLUCOSE 161 mg/dL (65-99); MAGNESIUM 1.9 mg/dL (1.5-2.1); PHOSPHOROUS 2.8 mg/dL (2.5-4.9); POTASSIUM 3.6 mmol/L (3.5-5.1); SGOT/AST 17 IU/L (3-35); SGPT/ALT 20 U/L (12-78); SODIUM 141 mmol/L (136-145); TOTAL PROTEIN 6.9 gm/dL (6.4-8.2)
[2017-04-05 17:10] LABS: ORGANISM ID Not indicated. (.); SPECIMEN SOURCE Urine (.); STREPTOCOCCUS PNEUMONIAE AG Negative (Negative)
[2017-04-06] VITALS (12 sets, daily range): BP systolic 95–124; BP diastolic 52–76
[2017-04-06 05:15] LABS: ABG BASE EXCESS 8.8 mmol/L (-2.0-2.0); ABG CO2 CONTENT 34.8 mmol/L (23-27); ABG HCO3 33.4 mmol/l (22-26); ABG TEMPERATURE 98.8 F (98.0-99.0); ARTERIAL BLOOD GAS PH 7.466 (7.35-7.45)
[2017-04-06 05:53] LABS: BUN 27 mg/dl (7-24); CARBON DIOXIDE 33 mmol/L (21-32); CHLORIDE 101 mmol/L (98-107); EST GLOM FILT AFRICAN AMERICAN > 60 ml/min; GLUCOSE 180 mg/dL (65-99); POTASSIUM 3.9 mmol/L (3.5-5.1); SODIUM 141 mmol/L (136-145)
[2017-04-06 06:01] LABS: BASO % 0.2 % (0.0-1.0); EOS % 0.6 % (1.0-4.0); HEMATOCRIT 36.4 % (42.0-52.0); HEMOGLOBIN 11.5 g/dl (14.0-18.0); LYMPH # 1.2 10*3/uL (1.3-4.4); LYMPH % 22.4 % (27.0-41.0); MEAN CELL VOLUME 106.1 fl (80.0-94.0); MEAN CORPUSCULAR HGB 33.5 pg (27.0-31.0); MEAN CORPUSCULAR HGB CONC 31.6 g/dl (33.0-37.0); MEAN PLATELET VOLUME 11.3 fl (9.6-12.3); MONO # 0.6 10*3/uL (0.1-1.0); MONO % 10.9 % (3.0-9.0); NEUT # 3.6 10*3/uL (2.3-7.9); NEUT % 65.7 % (47.0-73.0); PLATELET COUNT AUTOMATED 106 10*3/uL (130-400); RED BLOOD COUNT 3.43 10*6/uL (4.50-5.90); RED CELL DISTRI WIDTH 16.2 % (0-14.5); WHITE BLOOD COUNT 5.4 10*3/uL (4.8-10.8)
[2017-04-06 06:20] LABS: INTERNATIONAL NORM RATIO 1.5 (2.0-3.5); PROTHROMBIN TIME 16.1 SECONDS (9.0-12.4)
[2017-04-06 15:09] LABS: ACID FAST SPEC PROCESSING Concentration (.)
[2017-04-07] VITALS (8 sets, daily range): BP systolic 107–151; BP diastolic 56–85
[2017-04-07 04:49] LABS: ABG BASE EXCESS 10.5 mmol/L (-2.0-2.0); ABG HCO3 35.5 mmol/l (22-26); ABG TEMPERATURE 97.3 F (98.0-99.0); ARTERIAL BLOOD GAS PH 7.481 (7.35-7.45); ARTERIAL BLOOD GAS PO2 79.9 mmHg (80-90)
[2017-04-07 05:32] LABS: ALBUMIN 2.7 gm/dl (3.1-4.5); ALKALINE PHOSPHATASE 59 U/L (45-117); BILIRUBIN, TOTAL 1.6 mg/dl (0.2-1.0); BUN 31 mg/dl (7-24); CARBON DIOXIDE 34 mmol/L (21-32); CHLORIDE 103 mmol/L (98-107); EST GLOM FILT AFRICAN AMERICAN > 60 ml/min; GLUCOSE 182 mg/dL (65-99); POTASSIUM 3.5 mmol/L (3.5-5.1); SGOT/AST 16 IU/L (3-35); SGPT/ALT 20 U/L (12-78); SODIUM 144 mmol/L (136-145); TOTAL PROTEIN 6.6 gm/dL (6.4-8.2)
[2017-04-07 06:05] LABS: BASO % 0.5 % (0.0-1.0); EOS % 0.9 % (1.0-4.0); HEMATOCRIT 35.4 % (42.0-52.0); LYMPH # 1.1 10*3/uL (1.3-4.4); LYMPH % 25.3 % (27.0-41.0); MEAN CELL VOLUME 106.9 fl (80.0-94.0); MEAN CORPUSCULAR HGB 33.2 pg (27.0-31.0); MEAN CORPUSCULAR HGB CONC 31.1 g/dl (33.0-37.0); MEAN PLATELET VOLUME 11.4 fl (9.6-12.3); MONO # 0.4 10*3/uL (0.1-1.0); MONO % 9.8 % (3.0-9.0); NEUT # 2.8 10*3/uL (2.3-7.9); NEUT % 63.3 % (47.0-73.0); PLATELET COUNT AUTOMATED 99 10*3/uL (130-400); RED BLOOD COUNT 3.31 10*6/uL (4.50-5.90); RED CELL DISTRI WIDTH 16.1 % (0-14.5); WHITE BLOOD COUNT 4.4 10*3/uL (4.8-10.8)
[2017-04-07 06:22] LABS: INTERNATIONAL NORM RATIO 1.4 (2.0-3.5); PROTHROMBIN TIME 15.1 SECONDS (9.0-12.4)
[2017-04-07 15:21] LABS: ABG HCO3 34.4 mmol/l (22-26); ABG TEMPERATURE 98.1 F (98.0-99.0); ARTERIAL BLOOD GAS PH 7.436 (7.35-7.45)
[2017-04-08] VITALS: BP 137/79
[2017-04-08 04:00] VITALS: BP 98/52
[2017-04-08 04:52] LABS: ABG BASE EXCESS 11.3 mmol/L (-2.0-2.0); ABG CO2 CONTENT 38.2 mmol/L (23-27); ABG HCO3 36.6 mmol/l (22-26); ARTERIAL BLOOD GAS PH 7.458 (7.35-7.45)
[2017-04-08 06:06] LABS: ALBUMIN 2.7 gm/dl (3.1-4.5); ALKALINE PHOSPHATASE 64 U/L (45-117); BUN 30 mg/dl (7-24); CARBON DIOXIDE 37 mmol/L (21-32); CHLORIDE 103 mmol/L (98-107); EST GLOM FILT AFRICAN AMERICAN > 60 ml/min; GLUCOSE 212 mg/dL (65-99); POTASSIUM 3.7 mmol/L (3.5-5.1); SGOT/AST 20 IU/L (3-35); SGPT/ALT 19 U/L (12-78); SODIUM 145 mmol/L (136-145); TOTAL PROTEIN 6.6 gm/dL (6.4-8.2)
[2017-04-08 06:13] LABS: BASO % 0.4 % (0.0-1.0); EOS % 0.4 % (1.0-4.0); HEMATOCRIT 34.1 % (42.0-52.0); HEMOGLOBIN 10.6 g/dl (14.0-18.0); LYMPH # 1.1 10*3/uL (1.3-4.4); LYMPH % 22.3 % (27.0-41.0); MEAN CELL VOLUME 107.6 fl (80.0-94.0); MEAN CORPUSCULAR HGB 33.4 pg (27.0-31.0); MEAN CORPUSCULAR HGB CONC 31.1 g/dl (33.0-37.0); MEAN PLATELET VOLUME 11.3 fl (9.6-12.3); MONO # 0.5 10*3/uL (0.1-1.0); MONO % 9.8 % (3.0-9.0); NEUT # 3.2 10*3/uL (2.3-7.9); NEUT % 67.1 % (47.0-73.0); PLATELET COUNT AUTOMATED 91 10*3/uL (130-400); RED BLOOD COUNT 3.17 10*6/uL (4.50-5.90); RED CELL DISTRI WIDTH 15.9 % (0-14.5); WHITE BLOOD COUNT 4.7 10*3/uL (4.8-10.8)
[2017-04-08 06:25] LABS: INTERNATIONAL NORM RATIO 1.4 (2.0-3.5); PROTHROMBIN TIME 14.6 SECONDS (9.0-12.4)
[2017-04-08 08:00] VITALS: BP 107/59
[2017-04-08 12:00] VITALS: BP 106/59
[2017-04-08 15:39] VITALS: BP 143/81
[2017-04-08 20:00] VITALS: BP 135/78
[2017-04-08 20:16] LABS: ABG BASE EXCESS 14.5 mmol/L (-2.0-2.0); ABG CO2 CONTENT 40.5 mmol/L (23-27); ABG HCO3 39.1 mmol/l (22-26); ABG TEMPERATURE 97.8 F (98.0-99.0); ARTERIAL BLOOD GAS PH 7.545 (7.35-7.45)
[2017-04-09] VITALS: BP 142/73
[2017-04-09 04:00] VITALS: BP 104/65
[2017-04-09 05:55] LABS: ABG BASE EXCESS 15.7 mmol/L (-2.0-2.0); ABG CO2 CONTENT 41.2 mmol/L (23-27); ABG HCO3 39.9 mmol/l (22-26); ABG TEMPERATURE 98.6 F (98.0-99.0); ARTERIAL BLOOD GAS PH 7.582 (7.35-7.45)
[2017-04-09 06:10] LABS: BASO % 0.4 % (0.0-1.0); EOS # 0.1 10*3/uL (0.0-0.4); EOS % 1.1 % (1.0-4.0); HEMATOCRIT 35.8 % (42.0-52.0); HEMOGLOBIN 11.2 g/dl (14.0-18.0); LYMPH # 1.2 10*3/uL (1.3-4.4); LYMPH % 26.8 % (27.0-41.0); MEAN CELL VOLUME 105.6 fl (80.0-94.0); MEAN CORPUSCULAR HGB CONC 31.3 g/dl (33.0-37.0); MEAN PLATELET VOLUME 11.3 fl (9.6-12.3); MONO # 0.5 10*3/uL (0.1-1.0); NEUT # 2.7 10*3/uL (2.3-7.9); NEUT % 60.5 % (47.0-73.0); PLATELET COUNT AUTOMATED 99 10*3/uL (130-400); RED BLOOD COUNT 3.39 10*6/uL (4.50-5.90); RED CELL DISTRI WIDTH 15.2 % (0-14.5); WHITE BLOOD COUNT 4.5 10*3/uL (4.8-10.8)
[2017-04-09 06:29] LABS: ALBUMIN 2.8 gm/dl (3.1-4.5); BILIRUBIN, TOTAL 2.9 mg/dl (0.2-1.0); BUN 34 mg/dl (7-24); CARBON DIOXIDE 38 mmol/L (21-32); CHLORIDE 97 mmol/L (98-107); EST GLOM FILT AFRICAN AMERICAN > 60 ml/min; GLUCOSE 167 mg/dL (65-99); POTASSIUM 3.1 mmol/L (3.5-5.1); SGOT/AST 18 IU/L (3-35); SGPT/ALT 23 U/L (12-78); SODIUM 143 mmol/L (136-145); TOTAL PROTEIN 7.3 gm/dL (6.4-8.2)
[2017-04-09 06:45] LABS: INTERNATIONAL NORM RATIO 1.3 (2.0-3.5); PROTHROMBIN TIME 14.2 SECONDS (9.0-12.4)
[2017-04-09 06:49] LABS: ALKALINE PHOSPHATASE 64 U/L (45-117)
[2017-04-09 08:00] VITALS: BP 107/59
[2017-04-09 12:00] VITALS: BP 104/65
[2017-04-09 16:00] VITALS: BP 125/68
[2017-04-09 19:50] VITALS: BP 125/68
[2017-04-10] VITALS (12 sets, daily range): BP systolic 99–136; BP diastolic 50–92
[2017-04-10 05:27] LABS: ABG CO2 CONTENT 43.1 mmol/L (23-27); ABG HCO3 41.7 mmol/l (22-26); ABG TEMPERATURE 98.6 F (98.0-99.0); ARTERIAL BLOOD GAS PH 7.569 (7.35-7.45)
[2017-04-10 06:00] LABS: BASO % 0.2 % (0.0-1.0); EOS # 0.1 10*3/uL (0.0-0.4); EOS % 1.3 % (1.0-4.0); HEMATOCRIT 35.3 % (42.0-52.0); HEMOGLOBIN 11.3 g/dl (14.0-18.0); LYMPH # 1.2 10*3/uL (1.3-4.4); LYMPH % 26.8 % (27.0-41.0); MEAN CELL VOLUME 105.7 fl (80.0-94.0); MEAN CORPUSCULAR HGB 33.8 pg (27.0-31.0); MEAN PLATELET VOLUME 11.5 fl (9.6-12.3); MONO # 0.5 10*3/uL (0.1-1.0); MONO % 11.6 % (3.0-9.0); NEUT # 2.7 10*3/uL (2.3-7.9); NEUT % 59.9 % (47.0-73.0); PLATELET COUNT AUTOMATED 103 10*3/uL (130-400); RED BLOOD COUNT 3.34 10*6/uL (4.50-5.90); RED CELL DISTRI WIDTH 15.9 % (0-14.5); WHITE BLOOD COUNT 4.6 10*3/uL (4.8-10.8)
[2017-04-10 06:01] LABS: ALBUMIN 2.8 gm/dl (3.1-4.5); BILIRUBIN, TOTAL 2.1 mg/dl (0.2-1.0); POTASSIUM 2.9 mmol/L (3.5-5.1); TOTAL PROTEIN 7.4 gm/dL (6.4-8.2)
[2017-04-10 10:25] LABS: INTERNATIONAL NORM RATIO 1.3 (2.0-3.5)
[2017-04-10 14:43] LABS: ALBUMIN 2.8 gm/dl (3.1-4.5); BILIRUBIN, TOTAL 2.3 mg/dl (0.2-1.0); POTASSIUM 3.6 mmol/L (3.5-5.1); TOTAL PROTEIN 7.5 gm/dL (6.4-8.2)
[2017-04-11] VITALS (12 sets, daily range): BP systolic 90–119; BP diastolic 52–75
[2017-04-11 05:23] LABS: INTERNATIONAL NORM RATIO 1.4 (2.0-3.5); PROTHROMBIN TIME 15.1 SECONDS (9.0-12.4)
[2017-04-11 05:26] LABS: ALBUMIN 2.9 gm/dl (3.1-4.5); POTASSIUM 3.1 mmol/L (3.5-5.1); TOTAL PROTEIN 7.5 gm/dL (6.4-8.2)
[2017-04-11 05:49] LABS: ABG BASE EXCESS 16.5 mmol/L (-2.0-2.0); ABG CO2 CONTENT 42.9 mmol/L (23-27); ABG HCO3 41.5 mmol/l (22-26); ABG TEMPERATURE 98.2 F (98.0-99.0); ARTERIAL BLOOD GAS PH 7.556 (7.35-7.45)
[2017-04-11 06:07] LABS: BASO % 0.4 % (0.0-1.0); EOS # 0.1 10*3/uL (0.0-0.4); EOS % 0.9 % (1.0-4.0); HEMATOCRIT 36.4 % (42.0-52.0); HEMOGLOBIN 11.3 g/dl (14.0-18.0); LYMPH # 1.8 10*3/uL (1.3-4.4); LYMPH % 31.7 % (27.0-41.0); MEAN CELL VOLUME 105.5 fl (80.0-94.0); MEAN CORPUSCULAR HGB 32.8 pg (27.0-31.0); MEAN PLATELET VOLUME 12.8 fl (9.6-12.3); MONO # 0.7 10*3/uL (0.1-1.0); MONO % 12.1 % (3.0-9.0); NEUT # 3.1 10*3/uL (2.3-7.9); NEUT % 54.5 % (47.0-73.0); PLATELET COUNT AUTOMATED 113 10*3/uL (130-400); RED BLOOD COUNT 3.45 10*6/uL (4.50-5.90); RED CELL DISTRI WIDTH 15.9 % (0-14.5); WHITE BLOOD COUNT 5.7 10*3/uL (4.8-10.8)
[2017-04-11 15:44] LABS: DIGOXIN 1.36 ng/ml (0.8-2.0)
[2017-04-11 15:46] LABS: VANCOMYCIN TROUGH 28.1 ug/mL (10-20)
[2017-04-12] VITALS (12 sets, daily range): BP systolic 102–128; BP diastolic 57–80
[2017-04-12 05:29] LABS: ABG BASE EXCESS 14.9 mmol/L (-2.0-2.0); ABG CO2 CONTENT 40.5 mmol/L (23-27); ABG HCO3 39.2 mmol/l (22-26); ABG TEMPERATURE 97.9 F (98.0-99.0); ARTERIAL BLOOD GAS PH 7.566 (7.35-7.45)
[2017-04-12 05:37] LABS: ALBUMIN 2.9 gm/dl (3.1-4.5); BILIRUBIN, TOTAL 1.6 mg/dl (0.2-1.0); POTASSIUM 3.3 mmol/L (3.5-5.1); TOTAL PROTEIN 7.7 gm/dL (6.4-8.2)
[2017-04-12 05:38] LABS: INTERNATIONAL NORM RATIO 1.5 (2.0-3.5); PROTHROMBIN TIME 16.2 SECONDS (9.0-12.4)
[2017-04-12 05:55] LABS: BASO % 0.4 % (0.0-1.0); EOS % 0.2 % (1.0-4.0); HEMATOCRIT 35.3 % (42.0-52.0); HEMOGLOBIN 11.4 g/dl (14.0-18.0); LYMPH # 1.5 10*3/uL (1.3-4.4); MEAN CELL VOLUME 104.7 fl (80.0-94.0); MEAN CORPUSCULAR HGB 33.8 pg (27.0-31.0); MEAN CORPUSCULAR HGB CONC 32.3 g/dl (33.0-37.0); MEAN PLATELET VOLUME 12.6 fl (9.6-12.3); MONO # 0.5 10*3/uL (0.1-1.0); MONO % 9.6 % (3.0-9.0); NEUT # 3.2 10*3/uL (2.3-7.9); NEUT % 60.6 % (47.0-73.0); PLATELET COUNT AUTOMATED 121 10*3/uL (130-400); RED BLOOD COUNT 3.37 10*6/uL (4.50-5.90); RED CELL DISTRI WIDTH 15.8 % (0-14.5); WHITE BLOOD COUNT 5.2 10*3/uL (4.8-10.8)
[2017-04-12 08:28] LABS: BILIRUBIN NEGATIVE (NEGATIVE); BLOOD 2+ (NEGATIVE); CLARITY SL CLOUDY (CLEAR); COLOR YELLOW (YELLOW); GLUCOSE NEGATIVE (NEGATIVE); KETONE NEGATIVE (NEGATIVE); LEUKO ESTERASE 3+ (NEGATIVE); NITRITE NEGATIVE (NEGATIVE); PROTEIN NEGATIVE (NEGATIVE); SPECIFIC GRAVITY <= 1.005 (1.005-1.030); UROBILINOGEN >= 8.0 E.U./dl (0.2-1.0)
[2017-04-12 08:52] LABS: BACTERIA TRACE; EPITHELIAL CELLS 16-20
[2017-04-12 08:53] LABS: URINE REFLEX COMMENT YES (NO)
[2017-04-12 13:58] LABS: ABG CO2 CONTENT 40.7 mmol/L (23-27); ABG HCO3 39.4 mmol/l (22-26); ARTERIAL BLOOD GAS PH 7.555 (7.35-7.45)
[2017-04-13] VITALS (12 sets, daily range): BP systolic 89–121; BP diastolic 41–68
[2017-04-13 04:55] LABS: ABG BASE EXCESS 14.3 mmol/L (-2.0-2.0); ABG CO2 CONTENT 40.1 mmol/L (23-27); ABG HCO3 38.7 mmol/l (22-26); ABG TEMPERATURE 98.7 F (98.0-99.0); ARTERIAL BLOOD GAS PH 7.548 (7.35-7.45)
[2017-04-13 05:34] LABS: INTERNATIONAL NORM RATIO 1.4 (2.0-3.5); PROTHROMBIN TIME 15.5 SECONDS (9.0-12.4)
[2017-04-13 05:51] LABS: BASO % 0.5 % (0.0-1.0); EOS % 0.5 % (1.0-4.0); LYMPH # 1.7 10*3/uL (1.3-4.4); LYMPH % 29.2 % (27.0-41.0); MEAN CELL VOLUME 104.7 fl (80.0-94.0); MEAN CORPUSCULAR HGB 33.1 pg (27.0-31.0); MEAN CORPUSCULAR HGB CONC 31.6 g/dl (33.0-37.0); MEAN PLATELET VOLUME 12.5 fl (9.6-12.3); MONO # 0.6 10*3/uL (0.1-1.0); MONO % 10.8 % (3.0-9.0); NEUT # 3.5 10*3/uL (2.3-7.9); NEUT % 58.7 % (47.0-73.0); PLATELET COUNT AUTOMATED 147 10*3/uL (130-400); RED BLOOD COUNT 3.63 10*6/uL (4.50-5.90); RED CELL DISTRI WIDTH 15.9 % (0-14.5)
[2017-04-13 05:56] LABS: BILIRUBIN, TOTAL 1.5 mg/dl (0.2-1.0); POTASSIUM 3.1 mmol/L (3.5-5.1); TOTAL PROTEIN 7.9 gm/dL (6.4-8.2)
[2017-04-14] VITALS (12 sets, daily range): BP systolic 102–126; BP diastolic 59–74
[2017-04-14 05:43] LABS: ALBUMIN 2.9 gm/dl (3.1-4.5); BILIRUBIN, TOTAL 1.5 mg/dl (0.2-1.0); MAGNESIUM 2.8 mg/dL (1.5-2.1); POTASSIUM 3.4 mmol/L (3.5-5.1); TOTAL PROTEIN 7.9 gm/dL (6.4-8.2)
[2017-04-14 06:11] LABS: ABG BASE EXCESS 11.3 mmol/L (-2.0-2.0); ABG CO2 CONTENT 35.8 mmol/L (23-27); ABG HCO3 34.6 mmol/l (22-26); ABG TEMPERATURE 98.9 F (98.0-99.0); ARTERIAL BLOOD GAS PH 7.553 (7.35-7.45)
[2017-04-14 06:14] LABS: BASO % 0.2 % (0.0-1.0); EOS % 0.7 % (1.0-4.0); HEMATOCRIT 37.1 % (42.0-52.0); LYMPH # 1.7 10*3/uL (1.3-4.4); LYMPH % 28.9 % (27.0-41.0); MEAN CELL VOLUME 103.9 fl (80.0-94.0); MEAN CORPUSCULAR HGB 33.6 pg (27.0-31.0); MEAN CORPUSCULAR HGB CONC 32.3 g/dl (33.0-37.0); MEAN PLATELET VOLUME 12.9 fl (9.6-12.3); MONO # 0.7 10*3/uL (0.1-1.0); MONO % 11.4 % (3.0-9.0); NEUT # 3.3 10*3/uL (2.3-7.9); NEUT % 58.6 % (47.0-73.0); PLATELET COUNT AUTOMATED 126 10*3/uL (130-400); RED BLOOD COUNT 3.57 10*6/uL (4.50-5.90); RED CELL DISTRI WIDTH 15.9 % (0-14.5); WHITE BLOOD COUNT 5.7 10*3/uL (4.8-10.8)
[2017-04-14 06:35] LABS: INTERNATIONAL NORM RATIO 1.4 (2.0-3.5); PROTHROMBIN TIME 15.6 SECONDS (9.0-12.4)
[2017-04-14] MEDS ORDERED: KLOR-CON M2020 ME1 PO (15:19)
[2017-04-14] MEDS ORDERED: COUMADIN3 M1 PO (15:19)
[2017-04-14] MEDS ORDERED: LANOXIN0.125 MG NG (15:19)
[2017-04-14] MEDS ORDERED: COUMADIN10 M1 PO (15:19)
[2017-04-14] MEDS ORDERED: PROTONIX40 M1 IV (15:38)
[2017-04-14] MEDS ORDERED: ACETAZOLAMIDE250 MG NG (15:38)
[2017-04-14] MEDS ORDERED: UNASYN 2 GM-11.5 GM IV (15:38)
[2017-04-14] MEDS ORDERED: BUMEX2.5 MG/10 IV (15:38)
[2017-04-15] VITALS: BP 105/60
[2017-04-15 02:00] VITALS: BP 111/63
[2017-04-15 04:00] VITALS: BP 113/61
[2017-04-15 05:32] LABS: INTERNATIONAL NORM RATIO 1.5 (2.0-3.5); PROTHROMBIN TIME 16.1 SECONDS (9.0-12.4)
[2017-04-15 05:48] LABS: BILIRUBIN, TOTAL 1.6 mg/dl (0.2-1.0); MAGNESIUM 2.8 mg/dL (1.5-2.1); POTASSIUM 3.7 mmol/L (3.5-5.1); TOTAL PROTEIN 8.4 gm/dL (6.4-8.2)
[2017-04-15 06:24] LABS: BASO % 0.3 % (0.0-1.0); EOS % 0.1 % (1.0-4.0); HEMATOCRIT 39.3 % (42.0-52.0); HEMOGLOBIN 12.7 g/dl (14.0-18.0); LYMPH % 29.2 % (27.0-41.0); MEAN CELL VOLUME 103.7 fl (80.0-94.0); MEAN CORPUSCULAR HGB 33.5 pg (27.0-31.0); MEAN CORPUSCULAR HGB CONC 32.3 g/dl (33.0-37.0); MEAN PLATELET VOLUME 12.5 fl (9.6-12.3); MONO # 0.7 10*3/uL (0.1-1.0); MONO % 9.9 % (3.0-9.0); NEUT # 4.2 10*3/uL (2.3-7.9); NEUT % 60.2 % (47.0-73.0); PLATELET COUNT AUTOMATED 155 10*3/uL (130-400); RED BLOOD COUNT 3.79 10*6/uL (4.50-5.90); RED CELL DISTRI WIDTH 16.4 % (0-14.5)
[2017-04-15 08:00] VITALS: BP 124/69
== END 2017-04-15 10:13 | disposition short-term general hospital (02) | DRG 870 ==
LOC: ED 13:54 → ICCU 15:38 → EDHOLD 15:38 → 5E 15:38 → ICCU 04-03 02:57
PROVIDERS: Internal Medicine; Internal Medicine Critical Care Medicine; Internal Medicine Hospice and Palliative Medicine; Obstetrics & Gynecology; Student in an Organized Health Care Education/Training Program
PROC: 0HDKXZZ Extraction of Right Lower Leg Skin, External Approach (ICD-10-PCS; 2017-03-31)
PROC: 5A09457 Assistance with Respiratory Ventilation, 24-96 Consecutive Hours, Continuous Positive Airway Pressure (ICD-10-PCS; 2017-03-31)
PROC: 0B988ZX Drainage of Left Upper Lobe Bronchus, Via Natural or Artificial Opening Endoscopic, Diagnostic (ICD-10-PCS; principal; 2017-04-04)
PROC: 0B958ZX Drainage of Right Middle Lobe Bronchus, Via Natural or Artificial Opening Endoscopic, Diagnostic (ICD-10-PCS; principal; 2017-04-04)
PROC: 0B968ZX Drainage of Right Lower Lobe Bronchus, Via Natural or Artificial Opening Endoscopic, Diagnostic (ICD-10-PCS; principal; 2017-04-04)
PROC: 0B928ZX Drainage of Carina, Via Natural or Artificial Opening Endoscopic, Diagnostic (ICD-10-PCS; principal; 2017-04-04)
PROC: 5A1955Z Respiratory Ventilation, Greater than 96 Consecutive Hours (ICD-10-PCS; principal; 2017-04-04)
PROC: 0BH17EZ Insertion of Endotracheal Airway into Trachea, Via Natural or Artificial Opening (ICD-10-PCS; principal; 2017-04-04)
PROC: 0B948ZX Drainage of Right Upper Lobe Bronchus, Via Natural or Artificial Opening Endoscopic, Diagnostic (ICD-10-PCS; principal; 2017-04-04)
DX: A41.9 Sepsis, unspecified organism (principal); N17.0 Acute kidney failure with tubular necrosis; J96.21 Acute and chronic respiratory failure with hypoxia; E43 Unspecified severe protein-calorie malnutrition; I50.23 Acute on chronic systolic (congestive) heart failure; D68.59 Other primary thrombophilia; D61.818 Other pancytopenia; E11.42 Type 2 diabetes mellitus with diabetic polyneuropathy; J15.211 Pneumonia due to Methicillin susceptible Staphylococcus aureus; I11.0 Hypertensive heart disease with heart failure; J96.22 Acute and chronic respiratory failure with hypercapnia; Z68.41 Body mass index [BMI] 40.0-44.9, adult; L97.919 Non-pressure chronic ulcer of unspecified part of right lower leg with unspecified severity; L97.929 Non-pressure chronic ulcer of unspecified part of left lower leg with unspecified severity; R65.20 Severe sepsis without septic shock; I48.2 Chronic atrial fibrillation; E11.65 Type 2 diabetes mellitus with hyperglycemia; E66.01 Morbid (severe) obesity due to excess calories; M1A.09X0 Idiopathic chronic gout, multiple sites, without tophus (tophi); E53.8 Deficiency of other specified B group vitamins; N40.0 Benign prostatic hyperplasia without lower urinary tract symptoms; E03.9 Hypothyroidism, unspecified; K21.9 Gastro-esophageal reflux disease without esophagitis; E11.622 Type 2 diabetes mellitus with other skin ulcer; E87.5 Hyperkalemia; G47.33 Obstructive sleep apnea (adult) (pediatric); E87.6 Hypokalemia; K80.20 Calculus of gallbladder without cholecystitis without obstruction; K74.60 Unspecified cirrhosis of liver; D53.9 Nutritional anemia, unspecified; D69.6 Thrombocytopenia, unspecified; J32.9 Chronic sinusitis, unspecified; Z79.82 Long term (current) use of aspirin; Z99.81 Dependence on supplemental oxygen; Z79.01 Long term (current) use of anticoagulants; Z95.1 Presence of aortocoronary bypass graft; Z86.718 Personal history of other venous thrombosis and embolism; Z86.711 Personal history of pulmonary embolism; Z79.4 Long term (current) use of insulin; Z79.899 Other long term (current) drug therapy; Z82.49 Family history of ischemic heart disease and other diseases of the circulatory system; Z83.3 Family history of diabetes mellitus